=== PATIENT | female | born 1975 | race Caucasian/White ===

== ENCOUNTER 2018-12-23 21:31 | Inpatient (IN) ==
--- NOTE | 2018-12-23 22:52 | Emergency Department Note ---
Disposition Clinical Impression: Aortic occlusion, Peripheral cyanosis, Peripheral vascular disease Low back pain Qualifiers: Chronicity: unspecified Back pain laterality: unspecified Sciatica presence: without sciatica Qualified Code(s): M54.5 - Low back pain Disposition: Admitted As Inpatient Condition: Fair Referrals: NONE,PCP [Primary Care Provider] - Forms: ED Satisfaction Letter Back Pain HPI - General Chief Complaint: ED Back Pain/Injury Stated Complaint: back pain Time Seen by Provider: 12/23/18 22:04 Source: patient Mode of arrival: private vehicle Limitations: no limitations Nursing Notes Reviewed: Yes Vital Signs Reviewed: Yes - History of Present Illness HPI Narrative: 43-year-old female 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 States she has had back pain for about the last week. It is worse with any type of ambulation. States that whenever she walks that her feet turn purple and her legs go numb. No prior history to this prior to 1 week ago. She denies any trauma. She is not on anticoagulation. Denies fevers. No bowel or bladder incontinence. She last used 3 years ago. No other complaints. Pt Subjective Complaint: back pain Onset (ago): week(s) Duration: intermittent Location: lumbar spine Worsens with: movement Associated symptoms: Reports: numbness. Denies: incontinence of bowel/bladder, fever, abdominal pain - Related Data Allergies Allergy/AdvReac Type Severity Reaction Status Date / Time Penicillins [PCN] Allergy Rash Verified 12/23/18 21:48 All systems ED: reviewed and negative except as stated. Cardiovascular: Denies: chest pain Respiratory: Denies: dyspnea Gastrointestinal: Denies: abdominal pain Musculoskeletal: Reports: back pain Neurological: Reports: numbness Past Medical History - Past Medical History Attestation: Yes The following information was validated with the patient. 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 - Social History Smoking Status: Current every day smoker Smokeless Tobacco Status: No Alcohol use: Reports: none Drug use: Reports: other Physical Exam - General Limitations: no limitations General appearance: alert, in no apparent distress - Head Head exam: atraumatic, normocephalic, normal inspection - Eye Eye exam: Present: normal appearance - ENT ENT exam: normal exam - Neck Neck exam: Present: normal inspection - Chest Chest inspection: Present: normal inspection, symmetric chest wall rise - Respiratory Respiratory exam: Present: normal lung sounds bilaterally - Cardiovascular Cardiovascular exam: Present: normal rhythm, tachycardia, normal heart sounds - Abdominal Exam Abdominal exam: Present: soft, Non-Tender. Absent: tenderness, distention, rigidity - Extremities Exam Extremities exam: Present: normal inspection, full ROM - Expanded Upper Extremity Exam Shoulder exam: Present: normal inspection, full ROM Arm exam: Present: normal inspection, full ROM Elbow exam: Present: normal inspection, full ROM Forearm/Wrist exam: Present: normal inspection, full ROM Hand exam: Present: normal inspection, full ROM - Expanded Lower Extremity Exam Hip/Pelvis exam: Present: normal inspection, full ROM Upper leg exam: Present: normal inspection, full ROM Knee exam: Present: normal inspection, full ROM Lower leg exam: Present: normal inspection, full ROM Foot/toe exam: Present: ecchymosis (The patient has purple discoloration of the bilateral feet from the level of the ankle distally. I am unable to palpate a posterior tibial or dorsalis pedis pulse.) Neurovascular/Tendon exam: Present: pulse deficit - Back Exam Back exam: Present: normal inspection Back 1 view image: 1 - Pain is mostly located over the sacrum. Course Course Narrative: Patient seen and examined. Vital signs reviewed. Unable to Doppler a pulse. Plan to get a stat VENUS. Anticipate angiogram with runoff of the aorta and vascular surgery consult if necessary. - Reevaluation(s) Reevaluation #1: VENUS of 0.3 and 0.4. Plan to obtain CT imaging for an angiogram with runoff. Reevaluation #2: I discussed the CT findings with the interpreting radiologist. They believe that her collateral flow seems insufficient for chronic process and a concern f or a more acute etiology. Plan to discuss with vascular surgery. - Consultations Consultation #1: I spoke with the on-call vascular surgeon Dr. Denise. Discussed the patient's history, exam including absent dorsalis pedis pulses with dopplerable posterior tibial pulses in conjunction with purple feet. Discussed her one-week history of symptoms worse with ambulation. Also discussed findings on her CT scan that I and the radiologist had discussed with her infrarenal aortic occlusion with poorly collateralized flow. Agrees with heparinizing the patient at this time and admission. Plans to evaluate imaging to determine further management. Consultation #2: Spoke again with the vascular surgeon about admitting to his service. Request admission to the hospitalist service at this time as he is currently covering the service. Vital Signs Temperature 98.8 F 12/23/18 21:48 Pulse Rate 123 12/23/18 21:48 Respiratory Rate 14 12/23/18 21:48 Blood Pressure 163/92 12/23/18 21:48 O2 Sat by Pulse Oximetry 99 12/23/18 21:48 Temperature 98.8 F 12/23/18 21:48 Pulse Rate 123 12/23/18 21:48 Respiratory Rate 14 12/23/18 21:48 Blood Pressure 163/92 12/23/18 21:48 O2 Sat by Pulse Oximetry 99 12/23/18 21:48 Oxygen Delivery Oxygen Delivery Room Air Back Pain/Injury - MDM Narrative Medical decision making narrative: 43-year-old female presenting with 1 week of back pain and lower extremity numbness and discoloration in the setting of an aortic occlusion. Patient has peripheral vascular disease with ABIs of 0.3 and 0.4. Labs reviewed and are grossly unremarkable. CT scan demonstrates infrarenal occlusion with poor collateralization. This case was discussed multiple times with the on-call vascular surgeon. Patient was started on heparin infusion in anticipation of po tential urgent vascular intervention. The patient is admitted to the hospitalist service with vascular consultation. - Lab Data Lab results reviewed: Yes I reviewed the patient's lab results. Result diagrams: 12/23/18 23:41 12/23/18 23:41 Lab Results 12/23/18 12/23/18 12/23/18 Range/Units 23:41 23:41 23:41 WBC 12.4 H (4.3-11.1) K/mcL RBC 5.17 H (3.82-4.97) M/mcL Hgb 15.6 H (11.5-15.4) g/dL Hct 45.4 H (35.3-44.9) % MCV 87.8 (83.0-100.0) fL MCH 30.2 (28.0-33.3) pg MCHC 34.4 (31.6-35.5) g/dL RDW 12.2 (11.5-14.5) % Plt Count 212 (140-400) K/mcL MPV 10.2 (9.4-12.4) fL Immature Gran % 0.7 (0-4) % Seg Neutrophils % 78.2 % Lymphocytes % 16.6 % Monocytes % 4.0 % Eosinophils % 0.2 % Basophils % 0.3 % Neutrophils # 9.7 H (1.6-8.9) K/mcL Lymphocytes # 2.1 (0.6-4.6) K/mcL Monocytes # 0.5 (0.0-1.3) K/mcL Eosinophils # 0.0 (0.0-0.6) K/mcL Basophils # 0.0 (0.0-0.2) K/mcL PT 11.6 (9.4-12.1) Seconds INR 1.0 APTT 26.2 (26.0-36.0) Seconds Heparin Anti-Xa, Unfract (0.30-0.70) IU/mL Sodium 133 L (136-145) mEq/L Potassium 4.3 (3.5-5.1) mEq/L Chloride 102 (98-107) mEq/L Carbon Dioxide 22 L (23-29) mEq/L BUN 5 L (6-20) mg/dL Creatinine 0.60 (0.60-1.20) mg/dL Est GFR ( Amer) > 60 (> 60) Est GFR (Non-Af Amer) > 60 (> 60) BUN/Creatinine Ratio 8 (6-26) Glucose 89 (70-105) mg/dL Calculated Osmolality 273 L (280-300) Calcium 9.7 (8.6-10.3) mg/dL 12/24/18 Range/Units 05:28 WBC (4.3-11.1) K/mcL RBC (3.82-4.97) M/mcL Hgb (11.5-15.4) g/dL Hct (35.3-44.9) % MCV (83.0-100.0) fL MCH (28.0-33.3) pg MCHC (31.6-35.5) g/dL RDW (11.5-14.5) % Plt Count (140-400) K/mcL MPV (9.4-12.4) fL Immature Gran % (0-4) % Seg Neutrophils % % Lymphocytes % % Monocytes % % Eosinophils % % Basophils % % Neutrophils # (1.6-8.9) K/mcL Lymphocytes # (0.6-4.6) K/mcL Monocytes # (0.0-1.3) K/mcL Eosinophils # (0.0-0.6) K/mcL Basophils # (0.0-0.2) K/mcL PT (9.4-12.1) Seconds INR APTT (26.0-36.0) Seconds Heparin Anti-Xa, Unfract 0.00 L (0.30-0.70) IU/mL Sodium (136-145) mEq/L Potassium (3.5-5.1) mEq/L Chloride (98-107) mEq/L Carbon Dioxide (23-29) mEq/L BUN (6-20) mg/dL Creatinine (0.60-1.20) mg/dL Est GFR ( Amer) (> 60) Est GFR (Non-Af Amer) (> 60) BUN/Creatinine Ratio (6-26) Glucose (70-105) mg/dL Calculated Osmolality (280-300) Calcium (8.6-10.3) mg/dL - Radiology Data Radiology results reviewed: Yes I reviewed the patient's radiology results. Aorta w/Runoff CTA 12/24/18 00:02 IMPRESSION: Occlusion of the abdominal aorta just below the level of renal arteries with reconstitution just above the aortic bifurcation. Bilateral common iliac arteries and external iliac arteries are extremely small in caliber. No significant collateral supply is seen to the lower extremities resulting in extremely small caliber bilateral lower extremity arterial vessels. No significant occlusive disease in the lower extremities although the below knee vessels are all quite small in caliber with poor opacification of bilateral anterior tibial arteries likely secondary to the aortic occlusion. Cholelithiasis. Critical results were called by Dr. Dez Brown to Dr. Gonsalo Baird on 12/24/2018 at 04:48. D/ / Dez Brown / Dez Brown Interpreting Provider: Dez Brown Lumbar Spine CT 12/24/18 00:02 IMPRESSION: No acute osseous abnormality on CT of the lumbar spine. Correlate with report from CTA abdomen/pelvis and runoff: Infrarenal abdominal aorta is occluded with reconstitution at the distal aspect of the infrarenal abdominal aorta. D/ / Bari Chin / Bari Chin Interpreting Provider: Bari Chin oyce - Ernesto Situation: Demographics, MOA Background: Presenting Complaint, Relevant PMH, Meds, & Allergies Assessment: Course and respsone to treatment, Exam Concerns, Patient/Family Expectation, Pertinant Lab Results Recommendation: Barrier(s) to disposition, Recommendation based on pending studies, treatments, or consults SJoyce Report Given to: Dr. Traci Orozco Repor Time: 05:49
--- NOTE | 2018-12-23 23:11 | Emergency Department Note ---
Disposition Clinical Impression: Aortic occlusion, Peripheral cyanosis, Peripheral vascular disease Low back pain Qualifiers: Chronicity: unspecified Back pain laterality: unspecified Sciatica presence: without sciatica Qualified Code(s): M54.5 - Low back pain Disposition: Admitted As Inpatient Condition: Fair General Adult HPI - General Chief complaint: ED Back Pain/Injury Stated complaint: back pain Time Seen by Provider: 12/23/18 22:04 Source: patient Mode of arrival: private vehicle Limitations: no limitations Nursing Notes Reviewed: Yes Vital Signs Reviewed: Yes - History of Present Illness Pain Scale: 2 - Related Data Allergies Allergy/AdvReac Type Severity Reaction Status Date / Time Penicillins [PCN] Allergy Rash Verified 12/23/18 21:48 Cardiovascular: Denies: chest pain Respiratory: Denies: dyspnea Gastrointestinal: Denies: abdominal pain Musculoskeletal: Reports: back pain Neurological: Reports: numbness Past Medical History - Past Medical History Medical history: Reports: hepatitis Psychiatric history: Reports: depression 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 - Social History Smoking Status: Current every day smoker Smokeless Tobacco Status: No Alcohol use: Reports: none Drug use: Reports: other Physical Exam - General Limitations: no limitations General appearance: alert, in no apparent distress Course Vital Signs Temperature 98.8 F 12/23/18 21:48 Pulse Rate 123 12/23/18 21:48 Respiratory Rate 14 12/23/18 21:48 Blood Pressure 163/92 12/23/18 21:48 O2 Sat by Pulse Oximetry 99 12/23/18 21:48 Temperature 98.8 F 12/23/18 21:48 Pulse Rate 99 12/24/18 06:05 Respiratory Rate 20 12/24/18 06:05 Blood Pressure 126/69 12/24/18 06:05 O2 Sat by Pulse Oximetry 99 12/24/18 06:05 Oxygen Delivery Oxygen Delivery Room Air Medical Decision Making - Medical Records Medical records reviewed: Yes I reviewed the patient's medical records. - Lab Data Lab results reviewed: Yes I reviewed the patient's lab results. Result diagrams: 12/23/18 23:41 12/23/18 23:41 Lab Results 12/23/18 12/23/18 12/23/18 Range/Units 23:41 23:41 23:41 WBC 12.4 H (4.3-11.1) K/mcL RBC 5.17 H (3.82-4.97) M/mcL Hgb 15.6 H (11.5-15.4) g/dL Hct 45.4 H (35.3-44.9) % MCV 87.8 (83.0-100.0) fL MCH 30.2 (28.0-33.3) pg MCHC 34.4 (31.6-35.5) g/dL RDW 12.2 (11.5-14.5) % Plt Count 212 (140-400) K/mcL MPV 10.2 (9.4-12.4) fL Immature Gran % 0.7 (0-4) % Seg Neutrophils % 78.2 % Lymphocytes % 16.6 % Monocytes % 4.0 % Eosinophils % 0.2 % Basophils % 0.3 % Neutrophils # 9.7 H (1.6-8.9) K/mcL Lymphocytes # 2.1 (0.6-4.6) K/mcL Monocytes # 0.5 (0.0-1.3) K/mcL Eosinophils # 0.0 (0.0-0.6) K/mcL Basophils # 0.0 (0.0-0.2) K/mcL PT 11.6 (9.4-12.1) Seconds INR 1.0 APTT 26.2 (26.0-36.0) Seconds Heparin Anti-Xa, Unfract (0.30-0.70) IU/mL Sodium 133 L (136-145) mEq/L Potassium 4.3 (3.5-5.1) mEq/L Chloride 102 (98-107) mEq/L Carbon Dioxide 22 L (23-29) mEq/L BUN 5 L (6-20) mg/dL Creatinine 0.60 (0.60-1.20) mg/dL Est GFR ( Amer) > 60 (> 60) Est GFR (Non-Af Amer) > 60 (> 60) BUN/Creatinine Ratio 8 (6-26) Glucose 89 (70-105) mg/dL Calculated Osmolality 273 L (280-300) Calcium 9.7 (8.6-10.3) mg/dL 12/24/18 Range/Units 05:28 WBC (4.3-11.1) K/mcL RBC (3.82-4.97) M/mcL Hgb (11.5-15.4) g/dL Hct (35.3-44.9) % MCV (83.0-100.0) fL MCH (28.0-33.3) pg MCHC (31.6-35.5) g/dL RDW (11.5-14.5) % Plt Count (140-400) K/mcL MPV (9.4-12.4) fL Immature Gran % (0-4) % Seg Neutrophils % % Lymphocytes % % Monocytes % % Eosinophils % % Basophils % % Neutrophils # (1.6-8.9) K/mcL Lymphocytes # (0.6-4.6) K/mcL Monocytes # (0.0-1.3) K/mcL Eosinophils # (0.0-0.6) K/mcL Basophils # (0.0-0.2) K/mcL PT (9.4-12.1) Seconds INR APTT (26.0-36.0) Seconds Heparin Anti-Xa, Unfract 0.00 L (0.30-0.70) IU/mL Sodium (136-145) mEq/L Potassium (3.5-5.1) mEq/L Chloride (98-107) mEq/L Carbon Dioxide (23-29) mEq/L BUN (6-20) mg/dL Creatinine (0.60-1.20) mg/dL Est GFR ( Amer) (> 60) Est GFR (Non-Af Amer) (> 60) BUN/Creatinine Ratio (6-26) Glucose (70-105) mg/dL Calculated Osmolality (280-300) Calcium (8.6-10.3) mg/dL - Radiology Data Radiology results reviewed: Yes I reviewed the patient's radiology results. Aorta w/Runoff CTA 12/24/18 00:02 IMPRESSION: Occlusion of the abdominal aorta just below the level of renal arteries with reconstitution just above the aortic bifurcation. Bilateral common iliac arteries and external iliac arteries are extremely small in caliber. No significant collateral supply is seen to the lower extremities resulting in extremely small caliber bilateral lower extremity arterial vessels. No significant occlusive disease in the lower extremities although the below knee vessels are all quite small in caliber with poor opacification of bilateral anterior tibial arteries likely secondary to the aortic occlusion. Cholelithiasis. Critical results were called by Dr. Dez Brown to Dr. Gonsalo Baird on 12/24/2018 at 04:48. D/ / Dez Brown / Dez Brown Interpreting Provider: Dez Brown Lumbar Spine CT 12/24/18 00:02 IMPRESSION: No acute osseous abnormality on CT of the lumbar spine. Correlate with report from CTA abdomen/pelvis and runoff: Infrarenal abdominal aorta is occluded with reconstitution at the distal aspect of the infrarenal abdominal aorta. D/ / Bari Chin / Bari Chin Interpreting Provider: Bari Chin Critical Care Time Critical Care Time: Yes Total Critical Care Time: 45 Attestation: Critical care performed: Time is exclusive of separately billable procedures. Time includes: direct patient care, patient reassessment, coordination of patient care, interpretation of data (laboratory data, radiology data, and respiratory data), review of patient's medical records, medical consultation and documentation of patient care. Procedures included in critical care time: Procedures excluded from critical care time: Attestation Statement - Attestation Attestation: I, Sloan Millan MD, personally evaluated this patient and discussed their management with the resident physician. I reviewed the resident's note and agree with the documented findings, medical decision making, and plan of care. 43-year-old female presents to the emergency department with a complaint that both of her feet have been getting numb and painful and turning purple the past week. Symptoms are worse when she walks and improved with rest. She also complains of lower back pain and sacral area pain. No fever. She is a heavy smoker. On examination patient is a well-developed thin female in no acute distress. She is alert and oriented 3. There is no cyanosis or diaphoresis. Breath sounds are equal bilaterally. No rales or wheezes noted. Heart regular rate and rhythm. Abdomen soft and nontender with normal bowel sounds. Both feet are cold to touch from just above the ankle down to the toes. She does have cyanosis of the feet bilaterally, especially the toes with delayed capillary refill. Unable to palpate pulses in the feet or ankles bilaterally. Unable to find pulses by Doppler in the feet or ankles bilaterally. The legs above the ankles are warm to touch. ABIs obtained procedures, 0.3 on the right and 0.4 on the left. Aortogram with runoff obtained. Showed occlusion of the infrarenal aorta with collateral circulation distally but small collaterals and limited blood flow. Labs reviewed. Patient was started on heparin infusion. Dr. Baird discussed the CT results with the radiologist from [facility]. He discussed the case with the vascular surgeon production proofreader, Dr. Denise. The hospitalist, Dr. Aviles, was consulted and accepted admission of the patient.
[2018-12-24] MEDS ORDERED: Isovue-370 500 ML BOTTLE IVP ONE (00:02)
[2018-12-24 00:17] LABS: Prothrombin Time 11.6 Seconds (9.4-12.1)
[2018-12-24 00:19] LABS: Activated Partial Thrombo Time 26.2 Seconds (26.0-36.0)
[2018-12-24 00:27] LABS: Basophils % 0.3 %; Eosinophils % 0.2 %; Hematocrit 45.4 % (35.3-44.9); Hemoglobin 15.6 g/dL (11.5-15.4); Immature Granulocytes % 0.7 % (0-4); Lymphocytes # 2.1 K/mcL (0.6-4.6); Lymphocytes % 16.6 %; Mean Corpuscular HGB Conc 34.4 g/dL (31.6-35.5); Mean Corpuscular Hemoglobin 30.2 pg (28.0-33.3); Mean Corpuscular Volume 87.8 fL (83.0-100.0); Mean Platelet Volume 10.2 fL (9.4-12.4); Monocytes # 0.5 K/mcL (0.0-1.3); Neutrophils # 9.7 K/mcL (1.6-8.9); Platelet Count 212 K/mcL (140-400); Red Blood Count 5.17 M/mcL (3.82-4.97); Red Cell Distribution Width 12.2 % (11.5-14.5); Segmented Neutrophils % 78.2 %
[2018-12-24 01:11] LABS: BUN/Creatinine Ratio 8 (6-26); Blood Urea Nitrogen 5 mg/dL (6-20); Calcium 9.7 mg/dL (8.6-10.3); Carbon Dioxide 22 mEq/L (23-29); Chloride 102 mEq/L (98-107); Glucose 89 mg/dL (70-105); Osmolality,Calculated 273 (280-300); Potassium 4.3 mEq/L (3.5-5.1); Sodium 133 mEq/L (136-145); eGFR For Non-African Americans > 60 (> 60)
[2018-12-24] MEDS ORDERED: *HR* Heparin 5,000 UNIT/ML VIAL IVP ONE (04:51)
[2018-12-24] MEDS ORDERED: *HR* Heparin 5,000 UNIT/ML VIAL IVP PRN (04:51)
[2018-12-24] MEDS ORDERED: Nicotine 14 MG PATCH.TD24 TD ONE (05:54)
[2018-12-24] MEDS: Heparin 25,000 UNIT/250 ML D5W 25,000 UNIT/250 ML IV.SOLN IVC SCH (06:22)
--- NOTE | 2018-12-24 10:57 | Vascular/Endovasc Consult Note ---
Date of Encounter: 12/24/18 Time of Encounter: 10:54 Assessment and Plan (1) Aortic occlusion Current Visit: Yes Status: Acute I have reviewed these films for the abdomen with runoff on the PACS system and by dictated report. I agree with the assessment that there is an occlusion of the abdominal aorta about a centimeter below the renals and reconstitution distally at the bifurcation. This is somewhat of an unusual position as it appears that the bifurcation itself is patent. There are small vessels thereafter, but is difficult to tell whether the vessels themselves are small or this is just hypoperfusion. It is probably a combination of both as this is a relatively small individual also. I see no evidence of other vascular disease noted. There does appear to be some calcification associated with the abdominal aorta, but it is not extensive. At this point in time the patient is not in a life or limb threatening situation. Certainly, the symptomatology associated with the feet this critical enough to justify surgical intervention soon. I think that the patient should have a beginning workup for possible embolic source, and it is noted that an echocardiogram has already been ordered which I agree with. I would also suggest an evaluation by Cardiology for both embolic risk and risk stratification for surgical intervention. I have discussed this case with Dr. Ordoñez, and he is in agreement that surgical intervention this weekend is not in the patient's best interest. With that in mind I would keep this patient on a heparin drip, Wednesday we will keep her nothing by mouth from midnight for Wednesday, we will have blood available for surgery, and I have described in general what is going on with this patient and potential surgical intervention to her. I would anticipate an attempt at thrombectomy, and if that is not successful progression to either endovascular repair or perhaps even open repair with open aortic endarterectomy versus aortobifemoral bypass grafting. Thank you very much for the opportunity to evaluate this patient. - History of Present Illness History of present illness: Ms. Bautista is a 43 year old female presented yesterday to the emergency room with a complaint of purplish discoloration to her feet and intermittent numbness to the feet. The patient states that approximately a week ago she felt a sudden onset of fullness and tightness associated with her low back. At the same time, she had numbness to her legs. She could not really define this as pain. She was sitting when this occurred, remain sitting for a few minutes, and then got up to try to "walk it off". Initially when she stood up, she was able to bear weight without problem. As she walked a few steps she became somewhat unstable and needed to hold onto things. She has tried several things over the intervening week, such as soaks, heat, and [id number] analgesics to help. Over this past week the numbness has been intermittent, her feet have turned purplish in coloration depending upon position, the feet have been cold, and her walking has gone from unlimited to minimal incapability. She presents here for further evaluation. The patient gives no history of claudication, atrial fibrillation, fluttering in her chest, racing of her heart, or any other symptoms consistent with atrial fibrillation. She does smoke about 1-1/2 packs of cigarettes per day, and she is not on control pills. She does not admit to any other obvious risk factors. She has no significant family history that is able to be glistened, and steadfastly denies any symptoms prior to a week ago. Past Med Surg Social Fam HX - Past Medical History Medical history: hepatitis Psychiatric history: depression - Past Surgical History Additional surgical history: tubal - Social History Smoking Status: Current every day smoker Packs per day: 1 1/2 pack/day Smokeless Tobacco Status: No Alcohol use: none Drug use: other Medications and Allergies Allergy/AdvReac Type Severity Reaction Status Date / Time Penicillins [PCN] Allergy Rash Verified 12/23/18 21:48 All Systems Review: The remainder of the systems were reviewed and are negative Review of Systems: The review of systems is reviewed in the chart is considered is grossly unremarkable to the presenting complaint. She specifically denies chest pain, chest discomfort, shortness of breath, abdominal pain, back pain prior to this, claudication prior to this, or specific neurologic motor deficit. The remainder of the review of systems is considered as negative at 10 point Exam Vital Signs, Last 4 Hours Temp Pulse Resp BP Pulse Ox 12/24/18 10:29 98.2 F 84 16 162/69 98 12/24/18 08:00 98.5 F 90 18 137/82 97 Exam: 43-year-old female in mild acute distress secondary to her lower extremities. She is awake, alert, coherent, and cooperative. She is somewhat anxious over her present status. She is someone who rarely is involved with the medical system. HEENT examination is grossly unremarkable Neck is supple, carotids are palpable, no bruits are auscultated, trachea is midline. Heart is regular rate and rhythm at this time. I hear no ectopy. There are no murmurs noted. Lungs are clear to auscultation Abdomen is soft without obvious masses Breast and genitalia examinations are deferred to her primary caregiver Extremities are present 4. In the upper extremities the brachial and radial pulses are palpable. No masses, lesions, or distortions are noted. In the lower extremities the femoral, dorsal pedal, and posterior tibial pulses are all nonpalpable. The upper legs are warm, and legs begin to cool at the level of the knee. By the time one reaches the foot, both feet are cold to the touch. Both feet have a purplish hue to them. This does timothy, but does so very slowly. There is no pain noted in the feet at this time. Neurologic exam shows no gross motor deficit. The patient has full and active motion in regards to the hip joint, knee joint, ankle joint, and all toes. She has some mild numbness associated with the foot, but she feels that this is very minimal at this point. She does feel the coldness of her feet. Consult Discharge Plan - Plan Referrals: NONE,PCP [Primary Care Provider] -
[2018-12-24] MEDS ORDERED: Naloxone 0.4 MG/ML INJ IVP PRN (11:19)
[2018-12-24] MEDS ORDERED: D5% in 0.45% NACL 1,000 ML IVC SCH (11:30)
--- NOTE | 2018-12-24 12:49 | Internal Med History&Physical ---
Date of Encounter: 12/24/18 Time of Encounter: 09:00 Internal Medicine - H&P: HPI Chief complaint: Bilateral leg numbness Admitted From: Home Plans for Post Hospital Care: Home History of present illness: Ms. Bautista is a 43 year old female present to ER for bilateral leg numbness. Past medical history is significant for IV drug use several years ago, hep C, S/P tubal ligation. Patient said she started to have bilateral leg numbness for about 1 week. Symptoms getting worse when she walks. And legs change color to purple on exertion. Patient also has low back pain. Patient denies fever, no shortness of breath or chest pain. Patient denies urinary/fecal incontinence. In the emergency room, CTA shows infrarenal aortic occlusion. CT L-spine shows no significant acute change. Patient was started on heparin drip and admitted for further management. Past Med Surg Social Fam HX - Past Medical History Medical history: hepatitis Psychiatric history: depression - Past Surgical History Additional surgical history: tubal - Social History Smoking Status: Current every day smoker Packs per day: 1 1/2 pack/day Smokeless Tobacco Status: No Alcohol use: none Drug use: other - Family History Mother History Unknown: Yes Internal Medicine - H&P: Meds Allergy/AdvReac Type Severity Reaction Status Date / Time Penicillins [PCN] Allergy Rash Verified 12/23/18 21:48 All Systems PM: A 10-system review of systems was performed and is negative for pertinent findings except as documented above in the HPI. - Constitutional Vitals: Temp Pulse Resp BP Pulse Ox 98.2 F 84 16 162/69 98 12/24/18 10:29 12/24/18 10:29 12/24/18 10:29 12/24/18 10:29 12/24/18 10:29 Exam: Pt is AAO x 3, in NAD HEENT: NC/AT, PERRL Neck: Supple, no JVD, no LAD Lungs: CTA b/l Heart: S1S2, RRR Abd: Soft, nontender, BS present Ext: ROM wnl, no pedal edema, bilateral LE pulse cannot detected, skin is cold. Neuro: No focal deficit Internal Med - H&P Results - Labs CBC & Chem 7: 12/23/18 23:41 12/23/18 23:41 Labs: Short CBC 12/23/18 Range/Units 23:41 WBC 12.4 H (4.3-11.1) K/mcL Hgb 15.6 H (11.5-15.4) g/dL Hct 45.4 H (35.3-44.9) % Plt Count 212 (140-400) K/mcL Neutrophils # 9.7 H (1.6-8.9) K/mcL BMP 12/23/18 23:41 Sodium 133 L Potassium 4.3 Chloride 102 Carbon Dioxide 22 L BUN 5 L Creatinine 0.60 Glucose 89 Calcium 9.7 - Impressions ITS Impressions Aorta w/Runoff CTA 12/24/18 00:02 IMPRESSION: Occlusion of the abdominal aorta just below the level of renal arteries with reconstitution just above the aortic bifurcation. Bilateral common iliac arteries and external iliac arteries are extremely small in caliber. No significant collateral supply is seen to the lower extremities resulting in extremely small caliber bilateral lower extremity arterial vessels. No significant occlusive disease in the lower extremities although the below knee vessels are all quite small in caliber with poor opacification of bilateral anterior tibial arteries likely secondary to the aortic occlusion. Cholelithiasis. Critical results were called by Dr. Dez Brown to Dr. Gonsalo Baird on 12/24/2018 at 04:48. D/ / Dez Brown / Dez Brown Interpreting Provider: Dez Brown Lumbar Spine CT 12/24/18 00:02 IMPRESSION: No acute osseous abnormality on CT of the lumbar spine. Correlate with report from CTA abdomen/pelvis and runoff: Infrarenal abdominal aorta is occluded with reconstitution at the distal aspect of the infrarenal abdominal aorta. D/ / Bari Chin / Bari Chin Interpreting Provider: Bari Chin - Assessment and Plan (1) Aortic occlusion Current Visit: Yes Status: Acute Assessment and plan: Patient has clear CT founding of aortic occlusion. Consistent with her symptoms. - Vascular surgery consult on case. Plan for surgery on Wednesday. - Continue heparin drip - Echocardiogram to rule out cardiac source of emboli - Cardiology consult per vascular surgery recommendation. (2) History of intravenous drug use in remission Current Visit: Yes Status: Acute Assessment and plan: Patient is on suboxone. Continue home medications after verification. - Patient has newly developed aortic occlusion, will check echocardiogram to rule out vegetation/emboli. - We will also check blood culture to rule out bacteremia. (3) Tobacco abuse Current Visit: Yes Status: Acute Assessment and plan: Smoking cessation education. Place patient on nicotine patch (4) DVT prophylaxis Current Visit: Yes Status: Acute Assessment and plan: Patient is on heparin drip - Time Spent With Patient Total time spent is greater than 50% in coordination of care (as documented) at patient's floor/unit and/or counseling patient: 40 minutes Greater than 35 minutes
[2018-12-24] MEDS: *HR* Heparin 5,000 UNIT/ML VIAL IVP PRN ×2 (14:12→22:23)
[2018-12-24] MEDS: NALOXONE SL SCH (22:19)
[2018-12-24] MEDS: BUPRENORPHINE SL SCH (22:19)
[2018-12-25 05:14] LABS: Basophils % 0.4 %; Eosinophils % 0.5 %; Hematocrit 45.5 % (35.3-44.9); Hemoglobin 15.8 g/dL (11.5-15.4); Immature Granulocytes % 0.1 % (0-4); Lymphocytes # 3.1 K/mcL (0.6-4.6); Lymphocytes % 41.6 %; Mean Corpuscular HGB Conc 34.7 g/dL (31.6-35.5); Mean Corpuscular Hemoglobin 30.5 pg (28.0-33.3); Mean Corpuscular Volume 87.8 fL (83.0-100.0); Mean Platelet Volume 10.3 fL (9.4-12.4); Monocytes # 0.6 K/mcL (0.0-1.3); Monocytes % 8.2 %; Neutrophils # 3.6 K/mcL (1.6-8.9); Platelet Count 196 K/mcL (140-400); Red Blood Count 5.18 M/mcL (3.82-4.97); Red Cell Distribution Width 12.1 % (11.5-14.5); Segmented Neutrophils % 49.2 %
[2018-12-25 05:36] LABS: BUN/Creatinine Ratio 13 (6-26); Blood Urea Nitrogen 7 mg/dL (6-20); Calcium 9.4 mg/dL (8.6-10.3); Carbon Dioxide 24 mEq/L (23-29); Chloride 101 mEq/L (98-107); Glucose 90 mg/dL (70-105); Magnesium 2.2 mg/dL (1.6-2.6); Osmolality,Calculated 278 (280-300); Potassium 3.7 mEq/L (3.5-5.1); Sodium 135 mEq/L (136-145); eGFR For Non-African Americans > 60 (> 60)
[2018-12-25] MEDS: Nicotine 21 MG PATCH.TD24 TD SCH (08:49)
[2018-12-25] MEDS: NALOXONE SL SCH ×2 (08:50→21:14)
[2018-12-25] MEDS: BUPRENORPHINE SL SCH ×2 (08:50→21:14)
--- NOTE | 2018-12-25 10:38 | Internal Med Progress Note ---
Hospitalist Progress Note - Encounter Date of Encounter: 12/25/18 Time of Encounter: 08:00 - Subjective Interval History: Patient was seen and evaluated by bedside with the RN. Reports improvement in her LE numbness and RN also reports that they are much warmer and "normal" in color compared to yesterday. Able to move both feet and toes without much diff iculty. No fever overnight. Denies any chest pain, palpitation. - Exam Vitals: Temp Pulse Resp BP Pulse Ox 98.4 F 89 15 158/73 99 12/25/18 08:05 12/25/18 08:05 12/25/18 08:05 12/25/18 08:05 12/25/18 08:05 Exam: General: AAO x 3, in NAD Lungs: CTA b/l Heart: S1S2, RRR. No murmur appreciated Abd: Soft, nontender, BS present. 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 able to move both without difficulty. Unable to palpate both pulses well Neuro: No focal deficit - Assessment and Plan (1) Aortic occlusion Current Visit: Yes Status: Acute Assessment and Plan: Patient has clear CT founding of aortic occlusion. Consistent with her sympto ms. started on heparin gtt with slight improvement vascular surgery input appreciated, to continue heparin gtt and tentatively plan for OR tomorrow cardiology consult placed yesterday per vascular suggestion for both embolic risk and risk stratification for surgery Echo pending (2) History of intravenous drug use in remission Current Visit: Yes Status: Chronic Assessment and Plan: Patient is on suboxone. Continue home medications after verification. Patient has newly developed aortic occlusion, echocardiogram pending to rule out vegetation/emboli. Follow up blood cultures to rule out bacteremia. (3) Tobacco abuse Current Visit: Yes Status: Chronic Assessment and Plan: Smoking cessation education. NRT (4) DVT prophylaxis Current Visit: Yes Status: Acute Assessment and Plan: hep gtt - Time Spent with Patient Total time spent is greater than 50% in coordination of care (as documented) at patient's floor/unit and/or counseling patient: 25 - 35 minutes Plan of Care Discussed with: patient (discussed with RN) Internal Medicine: Result - Labs CBC & Chem 7: 12/25/18 04:44 12/25/18 04:44 Labs: Short CBC 12/25/18 Range/Units 04:44 WBC 7.3 (4.3-11.1) K/mcL Hgb 15.8 H (11.5-15.4) g/dL Hct 45.5 H (35.3-44.9) % Plt Count 196 (140-400) K/mcL Neutrophils # 3.6 (1.6-8.9) K/mcL BMP 12/25/18 04:44 Sodium 135 L Potassium 3.7 Chloride 101 Carbon Dioxide 24 BUN 7 Creatinine 0.54 L Glucose 90 Calcium 9.4 - ABG Interpretation ABG results: PT/INR, D-dimer PT 11.6 Seconds (9.4-12.1) 12/23/18 23:41 Consult Discharge Plan - Plan Referrals: NONE,PCP [Primary Care Provider] -
--- NOTE | 2018-12-25 11:00 | Vascular/[facility] Progress Note ---
Date of Encounter: 12/25/18 Time of Encounter: 10:57 - Assessment and plan (1) Aortic occlusion Current Visit: Yes Status: Acute I have reviewed these films for the abdomen with runoff on the PACS system and by dictated report. I agree with the assessment that there is an occlusion of the abdominal aorta about a centimeter below the renals and reconstitution distally at the bifurcation. This is somewhat of an unusual position as it appears that the bifurcation itself is patent. There are small vessels thereafter, but is difficult to tell whether the vessels themselves are small or this is just hypoperfusion. It is probably a combination of both as this is a relatively small individual also. I see no evidence of other vascular disease noted. There does appear to be some calcification associated with the abdominal aorta, but it is not extensive. At this point in time the patient is not in a life or limb threatening situation. Certainly, the symptomatology associated with the feet this critical enough to justify surgical intervention soon. I think that the patient should have a beginning workup for possible embolic source, and it is noted that an echocardiogram has already been ordered which I agree with. I would also suggest an evaluation by Cardiology for both embolic risk and risk stratification for surgical intervention. I have discussed this case with Dr. Ordoñez, and he is in agreement that surgical intervention this weekend is not in the patient's best interest. With that in mind I would keep this patient on a heparin drip, Wednesday we will keep her nothing by mouth from midnight for Wednesday, we will have blood available for surgery, and I have described in general what is going on with this patient and potential surgical intervention to her. I would anticipate an attempt at thrombectomy, and if that is not successful progression to either endovascular repair or perhaps even open repair with open aortic endarterectomy versus aortobifemoral bypass grafting. Thank you very much for the opportunity to evaluate this patient. Discussion with patient/family: #1. Occlusion of the abdominal aorta below the renals and above the bifurcation. We are awaiting results of the echocardiogram to make sure there is no thrombus in the left atrium. Potential surgical intervention tomorrow. I did discuss this previous with Dr. Ordoñez. #2. Source unknown from #1, possible cardiac in origin certainly unclear Echocardiogram pending. - Subjective Interval history: This 43-year-old female seen in follow-up after having been evaluated yesterday and noted to have an occlusion of her abdominal aorta. She was placed on heparin and is potentially aiming at surgical intervention tomorrow. I had thought that an echocardiogram was already ordered, but apparently it was normal. I did discuss this with nursing at this time. The patient gives no new additional complaints today. She has been at bed rest, and her symptoms are relatively minimal. There were minimal previous at bedrest also. We have not challenged her with ambulation since she has been here. Vital Signs, Last 4 Hours Temp Pulse Resp BP Pulse Ox 12/25/18 10:36 98.4 F 84 16 151/90 100 12/25/18 08:05 98.4 F 89 15 158/73 99 Exam: 43-year-old female in no acute distress. Is awake, alert, coherent, and cooperative. Physical examination in regards to the HEENT, neck, heart, lungs, abdomen, extremity, and neurologic exams are grossly unchanged from previous with the exception of colon the physical examination on the extremities shows no gross changes. She has perhaps not as purplish in discoloration ax she was yesterday, but she has been at bed rest all day also. No changes in pulses or other aspe cts of the extremities. Results 12/25/18 04:44 12/25/18 04:44 Lab Results, Last 24 hours 12/25/18 12/25/18 04:44 04:44 WBC 7.3 Hgb 15.8 H Hct 45.5 H Plt Count 196 Sodium 135 L Potassium 3.7 Chloride 101 Carbon Dioxide 24 BUN 7 Creatinine 0.54 L Glucose 90 Calcium 9.4 Magnesium 2.2 Consult Discharge Plan - Plan Referrals: NONE,PCP [Primary Care Provider] -
[2018-12-25] MEDS: Heparin 25,000 UNIT/250 ML D5W 25,000 UNIT/250 ML IV.SOLN IVC SCH (13:56)
--- NOTE | 2018-12-25 16:58 | Cardiology Consult Note ---
Date of Encounter: 12/25/18 Time of Encounter: 10:56 Assessment and Plan (1) Preoperative cardiovascular examination Current Visit: Yes Status: Acute Patient had good functional status prior to developing symptoms of aortic occlusion. She has no active cardiac condition at this time. She is therefore at acceptable risk for surgical intervention if indicated. (2) Aortic occlusion Current Visit: Yes Status: Acute Infrarenal aortic occlusion, with poor flow to the lower extremities. No definite evidence of thrombus or intracardiac vegetation on transthoracic echocardiogram. Recommend MARGARET if clinically indicated (3) Tobacco abuse Current Visit: Yes Status: Chronic Urged to quit smoking Discussion w patient/family: The assessment and plan as outlined above was discussed with the patient and/or family members who expressed understanding and agreement. All questions were answered. Thank you for involving us in the care of your patient. Please call with any questions. History of Present Illness Consult date: 12/25/18 History of present illness: Ms. Bautista is a 43 year old female 43-year-old pleasant female, current everyday smoker, former IV drug user on therapy, admitted for lower back pain which started about a week ago, with duskiness of the feet bilaterally, and she was found to have infrarenal aortic occlusion with small caliber iliac vessels. She has no chest pain, palpitations, or shortness of breath. No history of intermittent claudication. She has no history of coronary artery disease, hypertension, diabetes, no history of infective endocarditis. No known family history of premature coronary artery disease. She reports walking her dog more than 2 blocks and is able to climb steps stairs without developing chest pain or shortness of breath. We are consulted for preoperative cardiovascular examination Past Med Surg Social Fam HX - Past Medical History Medical history: hepatitis Psychiatric history: depression - Past Surgical History Additional surgical history: tubal - Social History Smoking Status: Current every day smoker Packs per day: 1 1/2 pack/day Smokeless Tobacco Status: No Alcohol use: none Drug use: other - Family History Mother History Unknown: Yes Medications and Allergies Allergy/AdvReac Type Severity Reaction Status Date / Time Penicillins [PCN] Allergy Rash Verified 12/23/18 21:48 All Systems Review: The remainder of the systems were reviewed and are negative - Constitutional Constitutional: no anorexia, no fatigue, no fever(s) - EENT Eyes: no blurred vision Nose, mouth and throat: no bleeding gums - Cardiovascular Cardiovascular: no chest pain at rest, no chest pain with exertion, no diaph oresis, no irregular heart rhythm, no orthopnea, no palpitations, no syncope - Respiratory Respiratory: no cough, no dyspnea, no wheezing - Gastrointestinal Gastrointestinal: no abdominal pain - Musculoskeletal Musculoskeletal: no abnormal gait - Integumentary Integumentary: no unusual bruising - Neurological Neurological: no abnormal speech - Psychiatric Psychiatric: no anxiety - Hematological/Lymphatic Hematologic/Lymphatic: no easy bleeding Physical Examination Vital Signs, Last 4 Hours Temp Pulse Resp BP Pulse Ox 12/25/18 15:08 98.1 F 96 16 137/76 98 General: Conversant, No Apparent Distress HEENT: Atraumatic Neck: No JVD Cardiac: Reg Rate and Rhythm, Normal S1 and S2, No Murmur Lungs: Normal Breath Sounds, No Wheeze, Rales, Rhonchi Neuro: Alert and responsive Abdomen: Soft, Non-Tender Musculoskeletal: No Chest Wall Tenderness Extremities: No Edema Results 12/25/18 04:44 12/25/18 04:44 Lab Results 12/25/18 12/25/18 04:44 04:44 WBC 7.3 Hgb 15.8 H Hct 45.5 H Plt Count 196 Sodium 135 L Potassium 3.7 Chloride 101 Carbon Dioxide 24 BUN 7 Creatinine 0.54 L Glucose 90 Calcium 9.4 Magnesium 2.2 Consult Discharge Plan - Plan Referrals: NONE,PCP [Primary Care Provider] -
[2018-12-26 05:20] LABS: Hematocrit 40.3 % (35.3-44.9); Mean Corpuscular HGB Conc 34.7 g/dL (31.6-35.5); Mean Corpuscular Hemoglobin 29.9 pg (28.0-33.3); Mean Corpuscular Volume 86.1 fL (83.0-100.0); Mean Platelet Volume 10.4 fL (9.4-12.4); Platelet Count 190 K/mcL (140-400); Red Blood Count 4.68 M/mcL (3.82-4.97); Red Cell Distribution Width 11.9 % (11.5-14.5)
[2018-12-26 05:29] LABS: INR 1.1; Prothrombin Time 12.2 Seconds (9.4-12.1)
[2018-12-26 05:39] LABS: BUN/Creatinine Ratio 17 (6-26); Blood Urea Nitrogen 9 mg/dL (6-20); Calcium 9.8 mg/dL (8.6-10.3); Carbon Dioxide 22 mEq/L (23-29); Chloride 104 mEq/L (98-107); Glucose 95 mg/dL (70-105); Osmolality,Calculated 278 (280-300); Sodium 135 mEq/L (136-145); eGFR For Non-African Americans > 60 (> 60)
[2018-12-26] MEDS: Nicotine 21 MG PATCH.TD24 TD SCH (10:24)
[2018-12-26] MEDS: NALOXONE SL SCH ×3 (10:24→21:17)
[2018-12-26] MEDS: BUPRENORPHINE SL SCH ×3 (10:24→21:17)
--- NOTE | 2018-12-26 11:57 | Internal Med Progress Note ---
Hospitalist Progress Note - Encounter Date of Encounter: 12/26/18 Time of Encounter: 09:30 - Subjective Interval History: Patient states her numbness of the legs have completely resolved. No chest pain, palpitation, or worsening leg swelling. No leg pain. - Exam Vitals: Temp Pulse Resp BP Pulse Ox 98.4 F 102 16 147/86 98 12/26/18 11:25 12/26/18 11:25 12/26/18 11:25 12/26/18 11:25 12/26/18 11:25 Exam: General: AAO x 3, in NAD Lungs: CTA b/l Heart: S1S2, RRR. No murmur appreciated Abd: Soft, nontender, BS present. 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 Able to move both feet at the ankles without difficulty. Unable to palpate both pulses well Neuro: No focal deficit - Assessment and Plan (1) Aortic occlusion Current Visit: Yes Status: Acute Assessment and Plan: Patient has clear CT founding of aortic occlusion. Consistent with her symptoms. started on heparin gtt with good clinical response discussed with Dr. Ordoñez; given her clinical improvement, will hold off on surgery for today and a/w for his evaluation later this afternoon. Echo did not show any evidence of vegetation or thrombus (2) History of intravenous drug use in remission Current Visit: Yes Status: Chronic Assessment and Plan: Patient is on suboxone. Resumed after verification. Follow up blood cultures to rule out bacteremia, NGTD (3) Tobacco abuse Current Visit: Yes Status: Chronic Assessment and Plan: Smoking cessation education. NRT (4) DVT prophylaxis Current Visit: Yes Status: Acute Assessment and Plan: hep gtt - Time Spent with Patient Total time spent is greater than 50% in coordination of care (as documented) at patient's floor/unit and/or counseling patient: 25 - 35 minutes Plan of Care Discussed with: patient (discussed with RN and Vascular Surgery) Internal Medicine: Result - Labs CBC & Chem 7: 12/26/18 05:09 12/26/18 05:09 Labs: Short CBC 12/26/18 Range/Units 05:09 WBC 6.7 (4.3-11.1) K/mcL Hgb 14.0 D (11.5-15.4) g/dL Hct 40.3 (35.3-44.9) % Plt Count 190 (140-400) K/mcL BMP 12/26/18 05:09 Sodium 135 L Potassium 4.0 Chloride 104 Carbon Dioxide 22 L BUN 9 Creatinine 0.52 L Glucose 95 Calcium 9.8 - ABG Interpretation ABG results: PT/INR, D-dimer PT 12.2 Seconds (9.4-12.1) H 12/26/18 05:09 - Impressions Impressions Echocardiogram 12/24/18 09:27 Impressions: LVEF 60%. Normal LV chamber size, wall thickness and function. Normal left ventricular diastolic function. Normal right ventricular structure and function. Unable to estimate RVSP due to lack of TR jet. No obvious significant valvular dysfunction. No definite evidence of intracardiac vegetation or thrombus. Consider MARGARET if clinically indicated. Left Ventricular Wall Motion: Rest Echo Findings All wall segments showed normal motion. Findings: Study Quality * Technically adequate exam. ECG Findings * Normal sinus rhythm. Left Ventricle * LVEF 60%. * Normal LV chamber size, wall thickness and function. * Normal left ventricular diastolic function. Right Ventricle * Normal right ventricular structure and function. Left Atrium * Normal left atrial size. Right Atrium * Normal right atrial size. Interatrial Septum * Interatrial septum not well evaluated. Aortic Valve * Aortic valve not well visualized. * No aortic regurgitation. * No aortic stenosis. Mitral Valve * Mildly thickened mitral valve leaflets. * No mitral regurgitation. * No mitral stenosis. Tricuspid Valve * Normal tricuspid valve structure. * No tricuspid stenosis. * No tricuspid regurgitation. * Unable to estimate RVSP due to lack of TR jet. Pulmonic Valve * Pulmonic valve is not well visualized. Aorta * Normally sized aortic root. Pericardium * The pericardium appears normal. IVC * Normal IVC dimensions and inspiratory collapse. Pulmonary Artery * Pulmonary artery not well visualized. Consult Discharge Plan - Plan Referrals: NONE,PCP [Primary Care Provider] -
[2018-12-26] MEDS ORDERED: Acetaminophen 325 MG TABLET PO PRN (11:59)
[2018-12-26] MEDS: Heparin 25,000 UNIT/250 ML D5W 25,000 UNIT/250 ML IV.SOLN IVC SCH ×2 (15:05→23:23)
--- NOTE | 2018-12-26 16:27 | Vascular/[facility] Progress Note ---
Date of Encounter: 12/26/18 Time of Encounter: 16:23 - Assessment and plan (1) Aortic occlusion Current Visit: Yes Status: Acute Patient has what appears to be a one-week history of aortic occlusion. She denies any preemptive claudicatory symptoms. She states she was able to walk without difficulty prior to the onset of symptoms. She states the symptoms were abrupt in onset which would suggest either a focal dissection or embolization. The echocardiogram however reveals normal abnormalities to suggest a cardiac source for this thrombotic process. Patient does have risk factors for tobacco abuse and smokes approximately one half packs of cigarettes a day and has been smoking since age 16. The patient denies any trauma or automobile accidents or falls. Patient denies any family history of premature vascular disease. The patient does not know her father's medical history. The patient denies any preemptive issues with viral or respiratory illnesses or dehydration prior to the onset of her symptoms. I have personally reviewed the laboratory values and the CAT scan angiograms. The infrarenal aorta is occluded. What strikes me as all small her iliac vessels are in diameter. Due to the severity of this occlusion the patient clearly needs an operation on an urgent basis. Therefore recommended that we proceed with surgery tomorrow. The initial portion of the operation will be as exploration of the aorta to see if the aorta may be open by a thrombectomy and endarterectomy and patch angioplasty. If this is not feasible then the patient will require an aortobifemoral bypass graft. These issues were discussed with the patient in full. The potential risks and benefits as well as complications and alternatives were reviewed. Patient agrees to proceed. We will make the necessary arrangements for tomorrow morning. (2) History of intravenous drug use in remission Current Visit: Yes Status: Chronic Patient admits to heroin addiction. She states that she has been without drug use for the last 4-41/2 years. She is on Suboxone twice a day for control of her addiction. (3) Tobacco abuse Current Visit: Yes Status: Chronic The patient has been smoking since age 16. She presently smokes 1-1/2 pack cigarettes a day. Patient was clearly informed of the need for complete tobacco cessation. - Subjective Interval history: Patient states that the numbness is now gone from her legs. She no longer has the pelvic or lower extremity pain. Patient has been on intravenous heparin which is most likely the agent providing her relief. Vital Signs, Last 4 Hours Temp Pulse Resp BP Pulse Ox 12/26/18 14:19 98.1 F 94 14 145/96 97 - Physical Examination General: Present: Conversant, No Apparent Distress HEENT: Present: Atraumatic, Normocephaly Neck: Absent: JVD Cardiac: Present: Reg Rate and Rhythm Lungs: Present: Normal Breath Sounds Neuro: Present: Alert and responsive, No focal deficits noted, Cranial nerves grossly intact, Motor nerves grossly intact, Sensory nerves grossly intact Vascular: Present: Capillary refill delayed, Bruit (No abdominal or femoral bruits are identified.), Pulse, absent, Color/Temperature (Feet are cold to the touch. The feet and toes are cyanotic.). Absent: Edema Abdomen: Present: Soft, Non-tender. Absent: Masses Skin: Present: No rashes noted on visualized skin. Absent: Wound/ulcer(s) Musculoskeletal: Present: No Chest Wall Tenderness Results 12/26/18 05:09 12/26/18 05:09 Lab Results, Last 24 hours 12/26/18 12/26/18 12/26/18 05:09 05:09 05:09 WBC 6.7 Hgb 14.0 D Hct 40.3 Plt Count 190 INR 1.1 Sodium 135 L Potassium 4.0 Chloride 104 Carbon Dioxide 22 L BUN 9 Creatinine 0.52 L Glucose 95 Calcium 9.8 Consult Discharge Plan - Plan Referrals: NONE,PCP [Primary Care Provider] -
--- NOTE | 2018-12-26 18:27 | Anesthesia Evaluation PreOp ---
Date of Encounter: 12/26/18 Time of Encounter: 18:25 - Past History Planned Operation: Aortic thrombectomy Cardiac History: Other (Aortic occlusion) Pulmonary History: Smoker HEAD WELL PULLER History: Other (depression) Other Medical History: Hepatic Anesthesia History: No Prior Anesthetic Complications, Past Anesthesia (tubal) Alcohol Use: none Drug use: other (hx of IV drug use) Medications and Allergies Buprenorphine HCl/Naloxone HCl [Buprenorphin-Naloxon 8-2 mg Sl] 1 tab SL BID 12/25/18 [History] Allergy/AdvReac Type Severity Reaction Status Date / Time Penicillins [PCN] Allergy Rash Verified 12/23/18 21:48 - Meds/Allergy Pre-op Review Medications Reviewed: Yes Allergies Reviewed: Yes Beta Blockers on Current Med List: No Anesthesia Results - Labs 12/26/18 05:09 12/26/18 05:09 Laboratory Tests 12/23/18 12/26/18 12/26/18 23:41 05:09 12:59 PT 12.2 H INR 1.1 APTT 26.2 Heparin Anti-Xa, Unfract 0.36 - Imaging EKG: report reviewed (12/24/18 NSR) Additional studies: ECHO 12/24/18 Impressions: LVEF 60%. Normal LV chamber size, wall thickness and function. Normal left ventricular diastolic function. Normal right ventricular structure and function. Unable to estimate RVSP due to lack of TR jet. No obvious significant valvular dysfunction. No definite evidence of intracardiac vegetation or thrombus. Consider MARGARET if clinically indicated. Anesthesia Exam Vital Signs/O2 Sat, Most Current Temp Pulse Resp BP Pulse Ox 98.1 F 94 14 145/96 97 12/26/18 14:19 12/26/18 14:19 12/26/18 14:19 12/26/18 14:19 12/26/18 14:19 Weight: 47kg NPO (# of Hours): >8 - HEENT Pupil (Motor): Pupils equal, EOMI Mallampati: II Teeth: Edentulous (upper) Oral Opening: Greater than 3 - HEAD WELL PULLER LOC: Oriented HEAD WELL PULLER Motor: Normal RUE, Normal LUE, Normal RLE, Normal LLE, Normal Face HEAD WELL PULLER Sensory: Normal: RUE, LUE, RLE, LLE, Face - Cardiac Rhythm: Regular - Pulmonary Breath Sounds: bilateral Clear Respiratory Effort: Symmetrical Anesthesia Assess/Plan ASA Score: 3 (aortic occlusion, smoker, depression, hx of IVDA on buprenorphine) Anesthetic Plan: General Monitoring Plan: Standard Monitors, A-Line Recovery Plan: PACU (VS ICU)
[2018-12-26] MEDS ORDERED: Isovue-370 500 ML BOTTLE IVP ONE (20:42)
[2018-12-26] MEDS ORDERED: NON-FORMULARY MEDICATION 1 EACH EACH (Buprenorphine Hcl/Naloxone Hcl [Buprenorphin-Naloxon SL SCH (21:00)
[2018-12-26] MEDS: 0.9 % Sodium Chloride 1,000 ML IVC SCH (21:04)
[2018-12-27 06:13] LABS: BUN/Creatinine Ratio 20 (6-26); Blood Urea Nitrogen 10 mg/dL (6-20); Calcium 9.1 mg/dL (8.6-10.3); Carbon Dioxide 21 mEq/L (23-29); Chloride 103 mEq/L (98-107); Glucose 89 mg/dL (70-105); Osmolality,Calculated 279 (280-300); Sodium 135 mEq/L (136-145); eGFR For Non-African Americans > 60 (> 60)
[2018-12-27] MEDS ORDERED: Heparin 1,000 UNITS/500 mL 500 ML ONE (06:56)
[2018-12-27] MEDS ORDERED: *HR* Rocuronium Bromide 50 MG/5 ML VIAL ONE ×2 (07:00→09:56)
[2018-12-27] MEDS ORDERED: Ondansetron 4 MG/2 ML VIAL ONE (07:00)
[2018-12-27] MEDS ORDERED: *HR* Phenylephrine 10 MG/ML VIAL ONE (07:00)
[2018-12-27] MEDS ORDERED: Lidocaine -MPF 2% 2 ML VIAL ONE ×2 (07:00→07:11)
[2018-12-27] MEDS ORDERED: Dexamethasone 4 MG/ML VIAL ONE (07:00)
[2018-12-27] MEDS ORDERED: *HR* Propofol 200 MG/20 ML VIAL IVP ONE (07:07)
[2018-12-27] MEDS ORDERED: *HR* Remifentanil 2 MG VIAL IVP ONE (07:16)
[2018-12-27] MEDS ORDERED: *HR* FentaNYL (PF) 100 MCG/2 ML VIAL ONE (07:20)
[2018-12-27] MEDS ORDERED: *HR* Midazolam HCl 2 MG/2 ML VIAL ONE (07:20)
[2018-12-27] MEDS ORDERED: *HR* Heparin 5,000 UNIT/ML VIAL ONE (07:22)
[2018-12-27] MEDS ORDERED: EPHEDrine 50 MG/ML VIAL ONE (07:23)
[2018-12-27] MEDS ORDERED: Heparin 1,000 UNITS/500 mL 1,500 ML ONE (07:29)
[2018-12-27 07:31] LABS: Basophils % 0.3 %; Eosinophils % 0.5 %; Hematocrit 37.9 % (35.3-44.9); Hemoglobin 13.2 g/dL (11.5-15.4); Immature Granulocytes % 0.1 % (0-4); Lymphocytes # 2.3 K/mcL (0.6-4.6); Mean Corpuscular HGB Conc 34.8 g/dL (31.6-35.5); Mean Corpuscular Hemoglobin 30.1 pg (28.0-33.3); Mean Corpuscular Volume 86.3 fL (83.0-100.0); Mean Platelet Volume 10.3 fL (9.4-12.4); Monocytes # 0.7 K/mcL (0.0-1.3); Monocytes % 8.8 %; Neutrophils # 4.8 K/mcL (1.6-8.9); Platelet Count 197 K/mcL (140-400); Red Blood Count 4.39 M/mcL (3.82-4.97); Red Cell Distribution Width 11.9 % (11.5-14.5); Segmented Neutrophils % 61.3 %
[2018-12-27] MEDS ORDERED: Albumin Human 5% 25.0 GM/500 ML VIAL ONE (07:34)
[2018-12-27] MEDS ORDERED: ceFAZolin 1,000 MG, Sodium Chloride IRRigation 1,000 ML IR ONE (07:45)
[2018-12-27] MEDS ORDERED: *HR* Vasopressin 20 UNIT/ML VIAL ONE (08:35)
[2018-12-27] MEDS ORDERED: *HR* EPINEPHrine 1 MG/ML AMPUL ONE (08:36)
[2018-12-27] MEDS ORDERED: *HR* Labetalol 20 MG/4 ML SYRINGE IVP ONE (08:37)
[2018-12-27] MEDS ORDERED: *HR* Succinylcholine 200 MG/10 ML VIAL IVP ONE (09:03)
--- NOTE | 2018-12-27 09:14 | Anesthesia Procedures ---
Date of Encounter: 12/27/18 Time of Encounter: 07:30 Procedures: Anesthesia - Arterial Line Consent obtained: written consent Time out performed: Yes Sedation: Versed (mg): 4 Supplemental Oxygen via Nasal Cannula (L/min): 2 Local Anesthetic: Lidocaine 1% (5) Size (Gauge): 20 Length (inches): 1 3/4 Technique Used: guide wire technique Post-Procedure: line taped into place Patient tolerated procedure: no complications Complications: none Site: Radial R Vitals: Vital Signs/O2 Sat/Glucose, Most Current Pulse Resp Pulse Ox 12/27/18 08:36 106 16 97 12/27/18 08:08 106 16 93 - Central Line Placement Right IJ Consent obtained: written consent Time out performed: Yes Patient placed on monitor/pulse ox: Yes Sedation: Versed (mg): 4 Supplemental Oxygen via Nasal Cannula (L/min): 2 MD prep: mask, gown, gloves Central line prep: Chlorhexidine scrub Local Anesthetic Used: Lidocaine 1% Amount of Anesthetics Used (mls): 5 Ultrasound used for placement: Yes Technique: Seldinger Lumen Inserted: triple Size / Length: 7 Fr / 16 cm Post procedure: sutured in place Post procedure x-ray: tip of catheter in good position Patient tolerated procedure: well, no complications Complications: none Vitals: Vital Signs/O2 Sat/Glucose, Most Current Pulse Resp Pulse Ox 12/27/18 08:36 106 16 97 12/27/18 08:08 106 16 93
[2018-12-27] MEDS ORDERED: Sodium Bicarbonate 50 MEQ/50 ML VIAL ONE (10:27)
[2018-12-27] MEDS ORDERED: *HR* HYDROMORPHONE 2 MG/ML VIAL ONE ×3 (10:29→13:21)
[2018-12-27] MEDS ORDERED: *HR* Morphine 2 MG/ML SYRINGE IVP PRN (10:58)
[2018-12-27] MEDS ORDERED: Ondansetron 4 MG/2 ML VIAL IVP ONE (10:58)
[2018-12-27] MEDS ORDERED: *HR* OxyCODONE Immed Rel 5 MG TABLET PO PRN (10:58)
[2018-12-27] MEDS ORDERED: Dexamethasone 4 MG/ML VIAL IVP ONE (10:58)
[2018-12-27] MEDS ORDERED: *HR* Labetalol 20 MG/4 ML SYRINGE IVP PRN ×2 (10:58→13:59)
[2018-12-27] MEDS ORDERED: *HR* Meperidine 25 MG/ML SYRINGE IVP PRN (10:58)
[2018-12-27 12:15] LABS: ABG Base Excess -2 mEq/L (-2 to 3); ABG Chloride 111 mEq/L (98-107); ABG Glucose 153 mg/dL (60-95); ABG HCO3 24 mEq/L (21-27); ABG Ionized Calcium 1.31 mmol/L (1.15-1.35); ABG Oxygen Saturation 100 % (95-98); ABG PCO2 45 mmHg (35-45); ABG PH 7.34 pH Units (7.32-7.45); ABG PO2 275 mmHg (85-104); ABG TCO2 25 mEq/L (20-26)
[2018-12-27] MEDS ORDERED: SUGAMMADEX SODIUM 500 MG/5 ML VIAL IV ONE (12:22)
--- NOTE | 2018-12-27 13:16 | Operative Note ---
Date of procedure: 12/27/18 Pre-op diagnosis: Peripheral vascular disease with aortic occlusion Post-op diagnosis: same Procedure: 1. Infrarenal abdominal aortic endarterectomy with Dacron patch angioplasty. Complications: None Anesthesia: GETA Surgeon: Tj Infante Co-Surgeon: Elmo Ordoñez Was there an senior sales assistant present: No Estimated blood loss (cc): 400 (375 returned via Cell Saver) Specimen: Aortic plaque and thrombus Condition: stable Disposition: PACU Procedure in Detail: Indications: The patient is a 43 year old female who reports acute onset severe disabling claudication in the bilateral lower extremities. She underwent a CT angiogram was found have a infrarenal aortic occlusion. Revascularization was recommended to reduce her risk of limb loss and to help alleviate her symptoms. Procedure: The patient was identified in the preoperative area. The risks, benefits, and alternatives of the procedure were discussed. All questions were answered. The patient was taken to the operating room and placed in supine position on the operating room table. After the induction of general endotracheal anesthesia, he was cleaned and draped in normal sterile fashion. A two surgeon approach was utilized for this procedure in order to minimize anesthetic time and the risks for complications due to the patients comorbid conditions. In addition, a two surgeon approach was used for intraoperative decision making. A midline incision was made sharply through the skin. Hemaostasis was obtained via electrocautery. Through a process of blunt, sharp and electrocautery dissection, the subcutaneous tissue, fascia and peritoneum were traversed. A brief exporation of the peritoneum revealed no acute pathology. The aorta was palpated in the retroperitoneum. The retroperitoneum was opened with blunt, sharp and electrocautery dissection. The aorta was dissected along the anterior, medial and lateral surfaces to the level of the renal arteries. The renal vein was identified and preserved. The dissection was extended down to the aortic bifurcation and onto the bilateral common iliac arteries. The distal bilateral common iliac arteries were dissected circumferentially and surrounded with vessel loops. The patient received 5000 units of intravenous heparin and additional heparin throughout the case to maintain anticoagulation. The infrarenal aorta was clamped just below the bilateral renal arteries. Tension was applied to the Vesseloops along the bilateral distal common iliac arteries. A longitudinal incision was made from just below the infrarenal aortic clamp down to the level of the aortic bifurcation. Significant aortic thrombus was encountered and this was removed. Retrograde bleeding from lumbar arteries was also identified. The lumbar arteries were clamped posterior to the aorta. An extensive endarterectomy was then performed using a dental freer. Distal endpoints were inspected. The posterior distal aortic plaque was then sutured in place with interrupted 5-0 Prolene suture. The aorta was flushed by releasing the clamp and a large organized thrombus emerged. The aorta was clamped again and infused with heparinized saline. A Dacron patch was then cut to fit the aortotomy. The patch was then sutured in place with a running 4-0 Prolene. After completing the patch angioplasty of the aorta, flow was restored through the aorta and the bilateral iliac arteries. Strong palpable femoral pulses were identified bilaterally. Thrombin and gelfoam were used to aid in hemostasis. Polyphasic signals were noted in the bilateral femoral arteries. The abdomen and pelvis were irrigated with antibiotic containing saline. Meticulous hemostasis was obtained throughout the retroperitoneum with electrocautery. The retroperitoneum was reapproximated with 2-0 Vicryl. The abdominal contents were returned to their normal anatomic position The nasogastric tube was checked for position. The midline fascia was reapproximated with looped PDS suture. The subcutaneous tissue was reapproximated with 3-0 Vicryl. Skin was reapproximated with 4-0 Vicryl. Sterile dressings were applied. The patient was extubated and taken to recovery room in stable condition.
--- NOTE | 2018-12-27 13:25 | Operative Note ---
Date of procedure: 12/27/18 Pre-op diagnosis: Acute aortic occlusion Post-op diagnosis: same Procedure: abdominal aortic thromboendarterectomy with dacron patch angioplasty Complications: 0 Anesthesia: GETA Surgeon: Elmo Ordoñez Co-Surgeon: Tj Infante Was there an diploma medical assistant present: No Estimated blood loss (cc): 400 (375 cell saver returned) Specimen: endarterectomy Condition: stable Disposition: ICU Procedure in Detail: History Pastora Bautista is a 43-year-old white female who was admitted over this past weekend with bilateral lower extremity numbness and pulse deficits. She was found to have an acute abdominal aortic occlusion. Patient was placed on IV heparin which controlled her symptoms and she was placed at bedrest. She now comes the operating room for definitive treatment for this lesion. Of note the patient is an active tobacco abuser. She also has a past history tobacco and heroin abuse and takes Suboxone. Procedure After informed consent was obtained the patient was taken to the operating room. A central line and arterial line will be placed in preop holding. General endotracheal anesthesia was established. The abdomen groin and upper thighs were sterilely prepped and draped. A timeout protocol was observed. A vertical midline incision was made of the abdomen. The abdomen was explored. Liver was slightly hypertrophic but there were no LESIONS. Spleen was normal in size as were the kidneys. There was no free fluid. The viscera otherwise was within normal limits. The small bowel was then reflected into the right upper quadrant. The retroperitoneum was then opened. The infrarenal aorta was pulseless. The patient had a relatively normal diameter aorta compared to her body size of a proximally 47 kg. Dissection was then made of the aortic bifurcation in order to control the proximal and mid portions of the bilateral common iliac arteries. Dissection was then carried proximally. The inferior mesenteric artery was identified and controlled. Dissection was carried up to the level of the renal arteries bilaterally. The left renal vein was mobilized so it could be retracted superiorly and cephalad. Patient had a palpable pulse at the level of the renal arteries and none distally. 5000 units of heparin were then administered intravenously. After 3 minute delay the aorta was clamped immediately below the renal arteries. A longitudinal aortotomy was performed with 11 blade knife and continued with Maxwell scissors. Fresh thrombus was identified in the infrarenal aorta above the inferior mesenteric artery but below the renal arteries. The patient had dramatic atherosclerotic disease with an area of dense atherosclerotic and calcific plaque in the most distal portion of the abdominal aorta. It would appear that this was perhaps a high-grade stenosis which went on to thrombose causing the patient's symptoms and then progression of the thrombus to the level of the renal arteries. The fresh thrombus was easily removed. A formal endarterectomy was then performed of the abdominal aorta. This was carried from the infrarenal location to the aortic bifurcation. The inferior mesenteric artery was preserved during this dissection and the orifice was endarterectomized as well. The bed of the vessel was then copiously irrigated with about continuing and heparinized solution. This area was inspected for any residual debris. Tacking sutures were used to secure the plaque at the distal aspect of the aorta immediately above the aortic bifurcation. In order to close this thromboendarterectomy and Dacron patch was necessary. A 12 mm tube graft was selected. This was then soaked in antibiotic and then cut to size to fashion an elliptical shaped patch. This was sewn into position using 2 4-0 Prolene sutures. Leaving a small space open the area was back flushed both retrograde and antegrade. The final few sutures were then placed. The right lower extremity was opened first and then the aortic clamp was removed. The patient tolerated this well and had no hypotension. Then the left leg was opened. The patient remained hemodynamically stable. Palpable femoral pulses were identified. Excellent Doppler signals were identified in the iliac vessels. The abdomen was then irrigated with antibiotic-containing solution. The retroperitoneum was reapproximated. The viscera was placed back into its normal position. There is no findings of ischemia of the left lower extremity. Excellent Doppler signals were identified through the inferior mesenteric artery as well. The fascia was then closed using loop PDS suture. The subcutaneous tissue was approximated using 3-0 Vicryl and then the skin was approximated using 4-0 Vicryl and Steri-Strips. Dry sterile dressings were applied. The patient was then extubated. She was hemodynamically stable. She was transported from the operating room to the intensive care unit in stable condition. Of note the patient had biphasic Doppler signals 2 at the ankle level bilaterally. Her feet were warm with 2 second or less capillary refill at the conclusion of the operation. Her calves were soft and there is no finding of compartment syndrome or distal embolization.
[2018-12-27] MEDS ORDERED: Naloxone 0.4 MG/ML INJ IVP PRN (13:59)
[2018-12-27] MEDS ORDERED: Ondansetron 4 MG/2 ML VIAL IVP PRN (13:59)
[2018-12-27] MEDS: Ketorolac 15 MG/ML VIAL IVP PRN (14:12)
[2018-12-27 15:08] LABS: Basophils % 0.2 %; Hematocrit 33.7 % (35.3-44.9); Immature Granulocytes % 0.5 % (0-4); Lymphocytes # 1.2 K/mcL (0.6-4.6); Mean Corpuscular HGB Conc 32.9 g/dL (31.6-35.5); Mean Corpuscular Hemoglobin 29.6 pg (28.0-33.3); Mean Corpuscular Volume 89.9 fL (83.0-100.0); Mean Platelet Volume 10.1 fL (9.4-12.4); Monocytes # 0.3 K/mcL (0.0-1.3); Monocytes % 2.3 %; Neutrophils # 11.3 K/mcL (1.6-8.9); Platelet Count 160 K/mcL (140-400); Red Blood Count 3.75 M/mcL (3.82-4.97); Red Cell Distribution Width 12.1 % (11.5-14.5)
[2018-12-27 15:12] LABS: Hemoglobin 11.1 g/dL (11.5-15.4)
[2018-12-27 15:17] LABS: BUN/Creatinine Ratio 18 (6-26); Blood Urea Nitrogen 10 mg/dL (6-20); Calcium 8.5 mg/dL (8.6-10.3); Carbon Dioxide 24 mEq/L (23-29); Chloride 111 mEq/L (98-107); Glucose 161 mg/dL (70-105); Osmolality,Calculated 293 (280-300); Potassium 3.8 mEq/L (3.5-5.1); Sodium 140 mEq/L (136-145); eGFR For Non-African Americans > 60 (> 60)
--- NOTE | 2018-12-27 15:32 | Internal Med Progress Note ---
Hospitalist Progress Note - Encounter Date of Encounter: 12/27/18 Time of Encounter: 13:45 - Subjective Interval History: Patient was seen postop. Underwent abdominal aortic thromboendarterectomy with patch angioplasty this morning. Was transferred to ICU for post-op monitoring with CVC, A-line, and NGT. No new complaints. - Exam Vitals: Temp Pulse Resp BP Pulse Ox 98.2 F 98 22 145/66 94 12/27/18 14:59 12/27/18 14:59 12/27/18 14:59 12/27/18 14:59 12/27/18 14:59 Exam: General: AAO x 3, NGT in situ Lungs: CTA b/l Heart: S1S2, RRR. No murmur appreciated Ext: both feet warm to touch with palpable DP bilaterally Neuro: No focal deficit - Assessment and Plan (1) Aortic occlusion Current Visit: Yes Status: Acute Assessment and Plan: Patient has clear CT founding of aortic occlusion. Consistent with her symptoms. Echo did not show any evidence of vegetation or thrombus was on heparin gtt and taken to the OR for thromboendarterectomy with patch angioplasty today by Dr. Ordoñez/Naresh post-op mx per vascular surgery (2) History of intravenous drug use in remission Current Visit: Yes Status: Chronic Assessment and Plan: Patient is on suboxone. Resumed after verification. Follow up blood cultures to rule out bacteremia, NGTD (3) Tobacco abuse Current Visit: Yes Status: Chronic Assessment and Plan: Smoking cessation education. NRT (4) DVT prophylaxis Current Visit: Yes Status: Acute Assessment and Plan: transition to SQ heparin once feasible from surgical standpoint - Time Spent with Patient Total time spent is greater than 50% in coordination of care (as documented) at patient's floor/unit and/or counseling patient: 25 - 35 minutes Plan of Care Discussed with: patient Internal Medicine: Result - Labs CBC & Chem 7: 12/27/18 14:40 12/27/18 14:40 Labs: Short CBC 12/27/18 12/27/18 Range/Units 07:02 14:40 WBC 7.8 12.8 H D (4.3-11.1) K/mcL Hgb 13.2 11.1 L D (11.5-15.4) g/dL Hct 37.9 33.7 L (35.3-44.9) % Plt Count 197 160 (140-400) K/mcL Neutrophils # 4.8 11.3 H (1.6-8.9) K/mcL BMP 12/27/18 12/27/18 04:59 14:40 Sodium 135 L 140 Potassium 4.0 3.8 Chloride 103 111 H Carbon Dioxide 21 L 24 BUN 10 10 Creatinine 0.49 L 0.55 L Glucose 89 161 H Calcium 9.1 8.5 L - ABG Interpretation ABG results: ABG ABG pH 7.34 pH Units (7.32-7.45) 12/27/18 12:11 ABG pCO2 45 mmHg (35-45) 12/27/18 12:11 ABG pO2 275 mmHg (85-104) H 12/27/18 12:11 ABG O2 Saturation 100 % (95-98) H 12/27/18 12:11 PT/INR, D-dimer PT 12.2 Seconds (9.4-12.1) H 12/26/18 05:09 - Impressions Impressions CT Dissection 12/26/18 20:42 IMPRESSION: There has been no change from the study 2 days ago. Complete occlusion of the infrarenal abdominal aorta is again noted with reconstitution at the level of the aortic bifurcation in part related to collateral supply by the inferior mesenteric artery. Cholelithiasis. Gallbladder wall thickening versus contraction. Moderate stool load particularly in the right colon suggest constipation. D/ / Tj Trevino MD / Tj Trevino MD Interpreting Provider: Tj Trevino MD Chest X-Ray 12/27/18 14:25 IMPRESSION: Right IJ central venous catheter with tip in the distal SVC. Enteric tube present with side-port in the proximal body of the stomach. Distal tip excluded from field of view. No evidence for acute cardiopulmonary process to include no pneumothorax. D/ : / 12/27/2018 14:43:37 Christian Hawkins MD / [facility] Interpreting Provider: Christian Hawkins MD Consult Discharge Plan - Plan Referrals: NONE,PCP [Primary Care Provider] - Elmo Ordoñez MD [Partnered Physician] - 01/18/19 9:45 am
--- NOTE | 2018-12-27 17:42 | Pulmonology Consult Note ---
<Cindy Noriega M - Last Filed: 12/27/18 19:06> Date of Encounter: 12/27/18 Time of Encounter: 15:42 Assessment and Plan (1) Aortic occlusion Current Visit: Yes Status: Acute * Per primary team * Doing well postoperatively * NG tube in place, will add GI prophylaxis Protonix 40mg daily (2) History of intravenous drug use in remission Current Visit: Yes Status: Chronic * On Suboxone, pain management per primary (3) Tobacco abuse Current Visit: Yes Status: Chronic * Will provide the patient with nicotine patch * Encouraged smoking cessation * No wheezing or need for further respiratory intervention at this time. (4) DVT prophylaxis Current Visit: Yes Status: Acute * SCD in place History of Present Illness History of present illness: Patient's a 43-year-old female with history of IV drug abuse, aortic occlusion, and tobacco abuse who presented on 12/23/18 due to back pain. She was found to have an aortic thrombus and underwent aortic endarterectomy with Dr. Ordoñez. Patient seen postop in the intensive care unit. She is alert, active and denies any pain. She denies any chest pain, shortness of breath, significant abdominal pain. Past Med Surg Social Fam HX - Past Medical History Medical history: hepatitis Psychiatric history: depression - Past Surgical History Additional surgical history: tubal - Social History Smoking Status: Unknown if ever smoked Packs per day: 1 1/2 pack/day Smokeless Tobacco Status: No Alcohol use: none Drug use: other - Family History Mother History Unknown: Yes Medications and Allergies Buprenorphine HCl/Naloxone HCl [Buprenorphin-Naloxon 8-2 mg Sl] 1 tab SL BID 12/25/18 [History] Allergy/AdvReac Type Severity Reaction Status Date / Time Penicillins [PCN] Allergy Rash Verified 12/23/18 21:48 All Systems: The remainder of the systems were reviewed and are negative - Constitutional Constitutional: as per HPI, no fever(s) - Cardiovascular Cardiovascular: no chest pain - Respiratory Respiratory: no cough, no dyspnea, no wheezing - Gastrointestinal Gastrointestinal: no abdominal pain Physical Examination Vital Signs: Vital Signs, Last 4 Hours Temp Pulse Resp BP Pulse Ox 12/27/18 17:00 100 22 149/72 97 12/27/18 16:00 98.1 F 93 20 149/71 95 12/27/18 15:30 91 20 149/68 95 12/27/18 14:59 98.2 F 98 22 145/66 94 12/27/18 14:33 100 23 157/73 94 12/27/18 14:17 98 20 168/82 97 12/27/18 14:00 94 20 172/91 97 12/27/18 13:45 92 20 166/85 100 General appearance: no acute distress, alert Eyes: nonicteric ENT: oropharynx moist Effort: normal Auscultation: bilateral: clear Cardiovascular: regular rate and rhythm Gastrointestinal: normoactive bowel sounds, other (Midline abdominal incision with dry dressings. No significant abdominal tenderness or guarding) Integumentary: normal Extremities: no cyanosis Musculoskeletal: no deformities normal mental status, non-focal exam mood appropriate, affect normal Results - Laboratory Findings CBC and BMP: 12/27/18 14:40 12/27/18 14:40 ABG ABG pH 7.34 pH Units (7.32-7.45) 12/27/18 12:11 ABG pCO2 45 mmHg (35-45) 12/27/18 12:11 ABG pO2 275 mmHg (85-104) H 12/27/18 12:11 ABG O2 Saturation 100 % (95-98) H 12/27/18 12:11 PT/INR, D-dimer PT 12.2 Seconds (9.4-12.1) H 12/26/18 05:09 Abnormal lab findings: Abnormal lab results WBC 12.8 K/mcL (4.3-11.1) H D 12/27/18 14:40 RBC 3.75 M/mcL (3.82-4.97) L 12/27/18 14:40 Hgb 11.1 g/dL (11.5-15.4) L D 12/27/18 14:40 Hct 33.7 % (35.3-44.9) L 12/27/18 14:40 Neutrophils # 11.3 K/mcL (1.6-8.9) H 12/27/18 14:40 PT 12.2 Seconds (9.4-12.1) H 12/26/18 05:09 ABG pO2 275 mmHg (85-104) H 12/27/18 12:11 ABG O2 Saturation 100 % (95-98) H 12/27/18 12:11 ABG Hematocrit 26.0 % (35.3-44.9) L 12/27/18 12:11 ABG Chloride 111 mEq/L (98-107) H 12/27/18 12:11 Potassium 3.4 mEq/L (3.5-5.3) L 12/27/18 12:11 Glucose 153 mg/dL (60-95) H 12/27/18 12:11 Chloride 111 mEq/L (98-107) H 12/27/18 14:40 Creatinine 0.55 mg/dL (0.60-1.20) L 12/27/18 14:40 Glucose 161 mg/dL (70-105) H 12/27/18 14:40 POC Glucose 157 mg/dL (70-99) H 12/27/18 13:42 Calcium 8.5 mg/dL (8.6-10.3) L 12/27/18 14:40 - Clinical Findings Intake & Output: Intake & Output 12/27/18 12/27/18 12/27/18 07:59 15:59 23:59 Intake Total 100 / 100 Output Total 800 / 800 300 / 300 450 / 450 Balance -800 / -800 -300 / -300 -350 / -350 Consult Discharge Plan - Plan Referrals: NONE,PCP [Primary Care Provider] - Elmo Ordoñez MD [Partnered Physician] - 01/18/19 9:45 am <Deborah Sepulveda - Last Filed: 12/27/18 22:48> Date of Encounter: 12/27/18 History of Present Illness Consult date: 12/27/18 Requesting physician: Elmo Ordoñez Reason for consult: other (Critical care management) All Systems: The remainder of the systems were reviewed and are negative Physical Examination Vital Signs: Vital Signs, Last 4 Hours Temp Pulse Resp BP Pulse Ox 12/27/18 17:00 100 22 149/72 97 12/27/18 16:00 98.1 F 93 20 149/71 95 12/27/18 15:30 91 20 149/68 95 12/27/18 14:59 98.2 F 98 22 145/66 94 12/27/18 14:33 100 23 157/73 94 12/27/18 14:17 98 20 168/82 97 12/27/18 14:00 94 20 172/91 97 12/27/18 13:45 92 20 166/85 100 Results - Laboratory Findings CBC and BMP: 12/27/18 14:40 12/27/18 14:40 ABG ABG pH 7.34 pH Units (7.32-7.45) 12/27/18 12:11 ABG pCO2 45 mmHg (35-45) 12/27/18 12:11 ABG pO2 275 mmHg (85-104) H 12/27/18 12:11 ABG O2 Saturation 100 % (95-98) H 12/27/18 12:11 PT/INR, D-dimer PT 12.2 Seconds (9.4-12.1) H 12/26/18 05:09 Abnormal lab findings: Abnormal lab results WBC 12.8 K/mcL (4.3-11.1) H D 12/27/18 14:40 RBC 3.75 M/mcL (3.82-4.97) L 12/27/18 14:40 Hgb 11.1 g/dL (11.5-15.4) L D 12/27/18 14:40 Hct 33.7 % (35.3-44.9) L 12/27/18 14:40 Neutrophils # 11.3 K/mcL (1.6-8.9) H 12/27/18 14:40 PT 12.2 Seconds (9.4-12.1) H 12/26/18 05:09 ABG pO2 275 mmHg (85-104) H 12/27/18 12:11 ABG O2 Saturation 100 % (95-98) H 12/27/18 12:11 ABG Hematocrit 26.0 % (35.3-44.9) L 12/27/18 12:11 ABG Chloride 111 mEq/L (98-107) H 12/27/18 12:11 Potassium 3.4 mEq/L (3.5-5.3) L 12/27/18 12:11 Glucose 153 mg/dL (60-95) H 12/27/18 12:11 Chloride 111 mEq/L (98-107) H 12/27/18 14:40 Creatinine 0.55 mg/dL (0.60-1.20) L 12/27/18 14:40 Glucose 161 mg/dL (70-105) H 12/27/18 14:40 POC Glucose 157 mg/dL (70-99) H 12/27/18 13:42 Calcium 8.5 mg/dL (8.6-10.3) L 12/27/18 14:40 - Clinical Findings Intake & Output: Intake & Output 12/27/18 12/27/18 12/27/18 07:59 15:59 23:59 Intake Total 100 / 100 Output Total 800 / 800 300 / 300 450 / 450 Balance -800 / -800 -300 / -300 -350 / -350 - Attending Attestation I examined this patient and my medical decision-making was reviewed with the Resident Physician. I agree with the documented findings, disposition and treatment plan as described except to the extent set forth below. Patient seen and examined. Labs, radiology, chart personally reviewed. 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 Nicotine patches and incentive spirometry Cardiovascular: stable and monitor for bleeding GI: Nutrition per dietary and GI prophylaxis per routine Heme: DVT prophylaxis per routine ID: per protocol for surgery Renal; urine out put and renal funtion reviewed Endorcine: blood glucose is monitored Lines: all lines checked and no evidence of infections Skin: skin care to prevent pressure ulcers per nursing routine care Discussed with Dr. Ordoñez and thanks for consultation
[2018-12-27] MEDS: Pantoprazole 40 MG VIAL IVP SCH (18:20)
[2018-12-27] MEDS: NALOXONE SL SCH (19:53)
[2018-12-27] MEDS: 0.9 % Sodium Chloride 1,000 ML IVC SCH (19:53)
[2018-12-27] MEDS: BUPRENORPHINE SL SCH (19:53)
[2018-12-27] MEDS: Nicotine 21 MG PATCH.TD24 TD SCH ×2 (20:07→20:17)
[2018-12-28] MEDS: Ketorolac 15 MG/ML VIAL IVP PRN ×2 (03:41→22:07)
[2018-12-28 03:57] LABS: Hematocrit 30.9 % (35.3-44.9); Hemoglobin 10.6 g/dL (11.5-15.4); Mean Corpuscular HGB Conc 34.3 g/dL (31.6-35.5); Mean Corpuscular Hemoglobin 30.1 pg (28.0-33.3); Mean Corpuscular Volume 87.8 fL (83.0-100.0); Platelet Count 149 K/mcL (140-400); Red Blood Count 3.52 M/mcL (3.82-4.97); Red Cell Distribution Width 11.9 % (11.5-14.5)
--- NOTE | 2018-12-28 07:56 | Vascular/[facility] Progress Note ---
Date of Encounter: 12/28/18 Time of Encounter: 07:54 - Assessment and plan (1) Aortic occlusion Current Visit: Yes Status: Acute Patient has had excellent response to aortic thromboendarterectomy with patch angioplasty. She now has restitution of normal pulses and normal color and temperature of feet and legs. No findings of compartment syndrome. Patient is hemodynamically stable. Patient may be transferred from the intensive care unit to [address] [place] [address]. Villeda catheter and arterial line may be discontinued. IV fluid at 75 ML's in our of 0.9 normal saline. Up in chair. Patient may ambulate with assistance. (2) History of intravenous drug use in remission Current Visit: Yes Status: Chronic Patient admits to heroin addiction. She states that she has been without drug use for the last 4-41/2 years. She is on Suboxone twice a day for control of her addiction. (3) Tobacco abuse Current Visit: Yes Status: Chronic The patient has been smoking since age 16. She presently smokes 1-1/2 pack cigarettes a day. Patient was clearly informed of the need for complete tobacco cessation. - Subjective Interval history: Patient is in the intensive care unit bed #12. Patient has no significant problems overnight. Patient states she has no pain or numbness in her lower extremities. Patient is anxious to eat and to have her tubes and IVs removed. The patient is concerned about her Suboxone. Vital Signs, Last 4 Hours Pulse Resp BP Pulse Ox 12/28/18 06:00 116 27 158/77 96 12/28/18 05:00 124 20 151/80 95 12/28/18 04:00 111 20 121/69 95 - Physical Examination General: Present: Conversant, No Apparent Distress HEENT: Present: Atraumatic Neck: Absent: JVD Cardiac: Present: Other (Patient has sinus tachycardia) Lungs: Present: Normal Breath Sounds Neuro: Present: Alert and responsive, No focal deficits noted, Cranial nerves grossly intact Vascular: Present: Normal capillary refill, Pulse, normal, Color/Temperature (Feet are warm and pink), Other (No findings to suggest compartment syndrome) Abdomen: Present: Soft, Other (Hypoactive bowel sounds) Skin: Present: No rashes noted on visualized skin Results 12/28/18 03:45 12/27/18 14:40 Lab Results, Last 24 hours 12/27/18 12/27/18 12/28/18 14:40 14:40 03:45 WBC 12.8 H D 9.6 Hgb 11.1 L D 10.6 L Hct 33.7 L 30.9 L Plt Count 160 149 Sodium 140 Potassium 3.8 Chloride 111 H Carbon Dioxide 24 BUN 10 Creatinine 0.55 L Glucose 161 H Calcium 8.5 L Consult Discharge Plan - Plan Referrals: NONE,PCP [Primary Care Provider] - Elmo Ordoñez MD [Partnered Physician] - 01/18/19 9:45 am
[2018-12-28] MEDS ORDERED: 0.9 % Sodium Chloride 1,000 ML IVC SCH (08:00)
--- NOTE | 2018-12-28 08:07 | Pulmonology Progress Note ---
<CocoInaderek M - Last Filed: 12/28/18 10:31> Date of Encounter: 12/28/18 Objective PUL Vital signs: Last Vital Signs Temp 98.9 F 12/28/18 08:43 Pulse 120 12/28/18 10:00 Resp 18 12/28/18 10:00 BP 164/81 12/28/18 10:00 Pulse Ox 95 12/28/18 10:00 Results - Laboratory Findings CBC and BMP: 12/28/18 03:45 12/27/18 14:40 ABG ABG pH 7.34 pH Units (7.32-7.45) 12/27/18 12:11 ABG pCO2 45 mmHg (35-45) 12/27/18 12:11 ABG pO2 275 mmHg (85-104) H 12/27/18 12:11 ABG O2 Saturation 100 % (95-98) H 12/27/18 12:11 PT/INR, D-dimer PT 12.2 Seconds (9.4-12.1) H 12/26/18 05:09 Abnormal lab findings: Abnormal lab results RBC 3.52 M/mcL (3.82-4.97) L 12/28/18 03:45 Hgb 10.6 g/dL (11.5-15.4) L 12/28/18 03:45 Hct 30.9 % (35.3-44.9) L 12/28/18 03:45 Neutrophils # 11.3 K/mcL (1.6-8.9) H 12/27/18 14:40 PT 12.2 Seconds (9.4-12.1) H 12/26/18 05:09 ABG pO2 275 mmHg (85-104) H 12/27/18 12:11 ABG O2 Saturation 100 % (95-98) H 12/27/18 12:11 ABG Hematocrit 26.0 % (35.3-44.9) L 12/27/18 12:11 ABG Chloride 111 mEq/L (98-107) H 12/27/18 12:11 Potassium 3.4 mEq/L (3.5-5.3) L 12/27/18 12:11 Glucose 153 mg/dL (60-95) H 12/27/18 12:11 Chloride 111 mEq/L (98-107) H 12/27/18 14:40 Creatinine 0.55 mg/dL (0.60-1.20) L 12/27/18 14:40 Glucose 161 mg/dL (70-105) H 12/27/18 14:40 POC Glucose 157 mg/dL (70-99) H 12/27/18 13:42 Calcium 8.5 mg/dL (8.6-10.3) L 12/27/18 14:40 - Clinical Findings Intake & Output: Intake & Output 12/27/18 12/28/18 12/28/18 23:59 07:59 15:59 Intake Total 100 / 100 100 / 100 100 / 100 Output Total 950 / 950 800 / 800 750 / 750 Balance -850 / -850 -700 / -700 -650 / -650 Weight 48.4 kg Consult Discharge Plan - Plan Referrals: NONE,PCP [Primary Care Provider] - Elmo Ordoñez MD [Partnered Physician] - 01/18/19 9:45 am - Attending Attestation I examined this patient and my medical decision-making was reviewed with the Resident Physician. I agree with the documented findings, disposition and treatment plan as described except to the extent set forth below. Patient seen and examined. Labs, radiology, chart personally reviewed. 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, Patient is anxious and I suspect this is from withdrawal and need to give her medication Pulmonary: Acceptable oxygenation and ventilation Cardiovascular: stable GI: Nutrition per dietary and GI prophylaxis per routine Heme: DVT prophylaxis per routine ID: Continue antibiotics and plan to de-escalation Renal; urine out put and renal funtion reviewed Endorcine: blood glucose is monitored Lines: all lines checked and no evidence of infections Skin: skin care to prevent pressure ulcers per nursing routine care <Cindy Noriega - Last Filed: 12/28/18 13:04> Date of Encounter: 12/28/18 Time of Encounter: 08:05 Assessment and Plan (1) Aortic occlusion Current Visit: Yes Status: Acute * Patient is postoperative day one status post aortic endarterectomy with Dr. Ordoñez * Today she states she is jittery as she has not taken her Suboxone today * H&H stable * Added Subutex 8 mg sublingual twice a day * Patient is otherwise nothing by mouth with an NG tube with sufficient output * On maintenance fluids per vascular surgery's recommendations * At this point stable for transfer out of the ICU to N (2) History of intravenous drug use in remission Current Visit: Yes Status: Chronic * Subutex added as she takes Suboxone at home (3) Tobacco abuse Current Visit: Yes Status: Chronic * Nicotine patch daily * Encouraged smoking cessation (4) DVT prophylaxis Current Visit: Yes Status: Acute * SCD in place * No anticoagulants in post-operative period Subjective Interval history: Today the patient is POD1 s/p aortic endarterectomy with Dr. Ordoñez. She notes she is jittery as she has not had her suboxone. She denies any significant pain and has not yet had a bowel movement. Objective PUL Vital signs: Last Vital Signs Temp 98.4 F 12/28/18 03:35 Pulse 116 12/28/18 06:00 Resp 27 12/28/18 06:00 BP 158/77 12/28/18 06:00 Pulse Ox 96 12/28/18 06:00 General appearance: no acute distress Eyes: nonicteric ENT: oropharynx moist Effort: normal Auscultation: bilateral: clear Cardiovascular: regular rate and rhythm Gastrointestinal: normoactive bowel sounds, non-tender Integumentary: normal Extremities: no cyanosis Musculoskeletal: no deformities normal mental status, non-focal exam mood appropriate, anxious Results - Laboratory Findings CBC and BMP: 12/28/18 03:45 12/27/18 14:40 ABG ABG pH 7.34 pH Units (7.32-7.45) 12/27/18 12:11 ABG pCO2 45 mmHg (35-45) 12/27/18 12:11 ABG pO2 275 mmHg (85-104) H 12/27/18 12:11 ABG O2 Saturation 100 % (95-98) H 12/27/18 12:11 PT/INR, D-dimer PT 12.2 Seconds (9.4-12.1) H 12/26/18 05:09 Abnormal lab findings: Abnormal lab results RBC 3.52 M/mcL (3.82-4.97) L 12/28/18 03:45 Hgb 10.6 g/dL (11.5-15.4) L 12/28/18 03:45 Hct 30.9 % (35.3-44.9) L 12/28/18 03:45 Neutrophils # 11.3 K/mcL (1.6-8.9) H 12/27/18 14:40 PT 12.2 Seconds (9.4-12.1) H 12/26/18 05:09 ABG pO2 275 mmHg (85-104) H 12/27/18 12:11 ABG O2 Saturation 100 % (95-98) H 12/27/18 12:11 ABG Hematocrit 26.0 % (35.3-44.9) L 12/27/18 12:11 ABG Chloride 111 mEq/L (98-107) H 12/27/18 12:11 Potassium 3.4 mEq/L (3.5-5.3) L 12/27/18 12:11 Glucose 153 mg/dL (60-95) H 12/27/18 12:11 Chloride 111 mEq/L (98-107) H 12/27/18 14:40 Creatinine 0.55 mg/dL (0.60-1.20) L 12/27/18 14:40 Glucose 161 mg/dL (70-105) H 12/27/18 14:40 POC Glucose 157 mg/dL (70-99) H 12/27/18 13:42 Calcium 8.5 mg/dL (8.6-10.3) L 12/27/18 14:40 - Clinical Findings Intake & Output: Intake & Output 12/27/18 12/28/18 12/28/18 23:59 07:59 15:59 Intake Total 100 / 100 100 / 100 Output Total 950 / 950 800 / 800 Balance -850 / -850 -700 / -700 Weight 48.4 kg
[2018-12-28] MEDS: Nicotine 21 MG PATCH.TD24 TD SCH (08:24)
[2018-12-28] MEDS: Pantoprazole 40 MG VIAL IVP SCH (08:25)
[2018-12-28] MEDS ORDERED: Nicotine 21 MG PATCH.TD24 TD SCH (09:00)
[2018-12-28] MEDS ORDERED: *HR* Buprenorphine HCl 2 MG SUBLINGUAL TABLET SL SCH (09:00)
--- NOTE | 2018-12-28 09:12 | Internal Med Progress Note ---
Hospitalist Progress Note - Encounter Date of Encounter: 12/28/18 Time of Encounter: 09:10 - Subjective Interval History: I have seen and evaluated the patient at bedside. Patient reports feeling a little jittery because she could not sleep last night. denies chest pain, abdominal pain, nausea or vomiting. Patient with NG tube placement post op. As per nurse about 400 cc of dark brown secretion has come out for the past 24 hours. - Exam Vitals: Temp Pulse Resp BP Pulse Ox 98.9 F 116 24 159/77 96 12/28/18 08:43 12/28/18 08:00 12/28/18 08:00 12/28/18 08:00 12/28/18 08:00 Exam: Vitals: Reviewed General: Alert and oriented x4. In mild distress because she has not been able to sleep. Skin: Normal color, no rash, no lesions. HEENT: EOM, pupils equal, round and reactive. Cardiovascular: Tachycardic, normal S1 & S2, no rubs, murmurs or gallops. Lungs: CTA b/l, no wheezes or crackles. Abdomen: Soft, non-tender, no rigidity. clean post op dressing Extremities: 1+ pulse right dorsalis pedis pulse. 2+ b/l posterior tibialis pulses. Neurological: Normal cognition and motor skills. Rest of the physical exam is non contributory - Assessment and Plan (1) Aortic occlusion Current Visit: Yes Status: Acute Assessment and Plan: s/p aortic thromboendarterectomy with patch angioplasty. plan of care as per vascular surgery team On gentle IV hydration Accu-check Q6HRs plus lispro low dose sliding scale If Blood sugar <100 consider changing the fluids to D5NS@75 to avoid hypoglycemia Continue PPIs and anti-emetics (2) History of intravenous drug use in remission Current Visit: Yes Status: Chronic Assessment and Plan: On buprenorphine 8mg SL BID (3) Tobacco abuse Current Visit: Yes Status: Chronic (4) DVT prophylaxis Current Visit: Yes Status: Acute Assessment and Plan: no chemical DVT prophylaxis due to recent vascular surgery. continue intermittent pneumatic compressions. - Summary of Assessment and Plan Summary of Assessment and Plan: patient to remain in the hospital due to aortic thromboendarterectomy with patch angioplasty. Patient NPO with NG tube placed. Potential discharge in 1-2 days. - Time Spent with Patient Total time spent is greater than 50% in coordination of care (as documented) at patient's floor/unit and/or counseling patient: 25 - 35 minutes (38) Plan of Care Discussed with: patient Internal Medicine: Result - Labs CBC & Chem 7: 12/28/18 03:45 12/27/18 14:40 Labs: Short CBC 12/27/18 12/28/18 Range/Units 14:40 03:45 WBC 12.8 H D 9.6 (4.3-11.1) K/mcL Hgb 11.1 L D 10.6 L (11.5-15.4) g/dL Hct 33.7 L 30.9 L (35.3-44.9) % Plt Count 160 149 (140-400) K/mcL Neutrophils # 11.3 H (1.6-8.9) K/mcL BMP 12/27/18 14:40 Sodium 140 Potassium 3.8 Chloride 111 H Carbon Dioxide 24 BUN 10 Creatinine 0.55 L Glucose 161 H Calcium 8.5 L - ABG Interpretation ABG results: ABG ABG pH 7.34 pH Units (7.32-7.45) 12/27/18 12:11 ABG pCO2 45 mmHg (35-45) 12/27/18 12:11 ABG pO2 275 mmHg (85-104) H 12/27/18 12:11 ABG O2 Saturation 100 % (95-98) H 12/27/18 12:11 PT/INR, D-dimer PT 12.2 Seconds (9.4-12.1) H 12/26/18 05:09 - Impressions Impressions Chest X-Ray 12/27/18 14:25 IMPRESSION: Right IJ central venous catheter with tip in the distal SVC. Enteric tube present with side-port in the proximal body of the stomach. Distal tip excluded from field of view. No evidence for acute cardiopulmonary process to include no pneumothorax. D/ : / 12/27/2018 14:43:37 Christian Hawkins MD / marciano Interpreting Provider: Christian Hawkins MD Consult Discharge Plan - Plan Referrals: NONE,PCP [Primary Care Provider] - Elmo Ordoñez MD [Partnered Physician] - 01/18/19 9:45 am
[2018-12-28] MEDS ORDERED: *HR* Labetalol 20 MG/4 ML SYRINGE IVP PRN (12:50)
[2018-12-28] MEDS ORDERED: Naloxone 0.4 MG/ML INJ IVP PRN (12:50)
[2018-12-28] MEDS ORDERED: Ondansetron 4 MG/2 ML VIAL IVP PRN (12:50)
[2018-12-28] MEDS: *HR* Buprenorphine HCl 2 MG SUBLINGUAL TABLET SL SCH (20:50)
[2018-12-28] MEDS: 0.9 % Sodium Chloride 1,000 ML IVC SCH (21:12)
[2018-12-29] MEDS: 0.9 % Sodium Chloride 1,000 ML IVC SCH ×3 (04:44→23:34)
[2018-12-29] MEDS: Ketorolac 15 MG/ML VIAL IVP PRN ×3 (05:49→20:53)
[2018-12-29] MEDS: Nicotine 21 MG PATCH.TD24 TD SCH (08:20)
[2018-12-29] MEDS: Pantoprazole 40 MG VIAL IVP SCH (08:20)
[2018-12-29] MEDS: *HR* Buprenorphine HCl 2 MG SUBLINGUAL TABLET SL SCH ×2 (08:20→20:53)
[2018-12-29] MEDS ORDERED: *HR* Metoprolol 5 MG/5 ML VIAL IVP PRN (14:34)
--- NOTE | 2018-12-29 15:11 | Internal Med Progress Note ---
Hospitalist Progress Note - Encounter Date of Encounter: 12/29/18 Time of Encounter: 15:09 - Subjective Interval History: I have seen and evaluated the patient at bedside. patient reports abdominal discomfort, denies pain. she also reports feeling anxious. denies nausea, vomiting or abdominal pain. reports she has been passing gas. - Exam Vitals: Temp Pulse Resp BP Pulse Ox 98.5 F 130 23 154/84 100 12/29/18 10:52 12/29/18 14:00 12/29/18 14:00 12/29/18 14:00 12/29/18 14:00 Exam: Vitals: Reviewed General: Alert and oriented x4. In mild distress due to abdominal discomfort. Cardiovascular: Tachycardic, normal S1 & S2, no rubs, murmurs or gallops. Lungs: CTA b/l, no wheezes or crackles. Abdomen: Soft, non-tender, no rigidity. clean post op dressing. NABS in all 4 quadrants Extremities: no edema. palpable pulses b/l lower extr Neurological: Normal cognition Rest of the physical exam is non contributory - Assessment and Plan (1) Aortic occlusion Current Visit: Yes Status: Acute Assessment and Plan: s/p aortic thromboendarterectomy with patch angioplasty. vascular surgery recommended to start the patient on dual anti-platelets lipid panel ordered started on atorvastatin 40mg/PO daily continue IV hydration while patient clear liquid diet will advance as tolerated. On Accu-check Q6HRs plus lispro low dose sliding scale On pantoprazole 40mg/IV daily continue ondansetron 4mg/IV Q4HR PRN (2) History of intravenous drug use in remission Current Visit: Yes Status: Chronic Assessment and Plan: patient is on buprenorphine 8mg/SubL BID (3) Tobacco abuse Current Visit: Yes Status: Chronic (4) Tachycardia Current Visit: Yes Status: Acute Assessment and Plan: patient with sinus tachycardia. possible due to pain and abdominal discomfort. metoprolol 2.5mg/IV Q6HR PRN for sustain HR >120 started on carvedilol 6.25mg/PO BID DVT Prophylaxis: no chemical dvt prophylaxis due to sent vascular procedure. will discuss with vascular surgery about resuming heparin. continue intermittent pneumatic compression - Summary of Assessment and Plan Summary of Assessment and Plan: patient to remain in the hospital. recent vascular procedure. NPO, tachycardic. Potential discharge in 1-2 days. - Time Spent with Patient Total time spent is greater than 50% in coordination of care (as documented) at patient's floor/unit and/or counseling patient: Greater than 35 minutes (40) Plan of Care Discussed with: patient (and the nurse) Internal Medicine: Result - Labs CBC & Chem 7: 12/28/18 03:45 12/27/18 14:40 - ABG Interpretation ABG results: ABG ABG pH 7.34 pH Units (7.32-7.45) 12/27/18 12:11 ABG pCO2 45 mmHg (35-45) 12/27/18 12:11 ABG pO2 275 mmHg (85-104) H 12/27/18 12:11 ABG O2 Saturation 100 % (95-98) H 12/27/18 12:11 PT/INR, D-dimer PT 12.2 Seconds (9.4-12.1) H 12/26/18 05:09 Consult Discharge Plan - Plan Referrals: NONE,PCP [Primary Care Provider] - Elmo Ordoñez MD [Partnered Physician] - 01/18/19 9:45 am
--- NOTE | 2018-12-29 15:47 | Vascular/Endovas Progress Note ---
Date of Encounter: 12/29/18 Time of Encounter: 15:45 - Assessment and plan (1) Aortic occlusion Current Visit: Yes Status: Acute Patient has had excellent response to aortic thromboendarterectomy with patch angioplasty. She now has restitution of normal pulses and normal color and temperature of feet and legs. No findings of compartment syndrome. Patient is hemodynamically stable. Patient may be transferred from the intensive care unit IV fluid at 75 ML's of 0.9 normal saline. This may be hep-locked when patient tolerates full liquids. Up in chair. Patient may ambulate with assistance. (2) History of intravenous drug use in remission Current Visit: Yes Status: Chronic Patient admits to heroin addiction. She states that she has been without drug use for the last 4-41/2 years. She is on Suboxone twice a day for control of her addiction. (3) Tobacco abuse Current Visit: Yes Status: Chronic The patient has been smoking since age 16. She presently smokes 1-1/2 pack cigarettes a day. Patient was clearly informed of the need for complete tobacco cessation. - Subjective Interval history: Patient is in the intensive care unit bed #12. Patient is postoperative day #2. Patient has no significant problems overnight. Patient states she has no pain or numbness in her lower extremities. Patient appears mildly agitated but controllable. Vital Signs, Last 4 Hours Temp Pulse Resp BP Pulse Ox 12/29/18 15:28 98.3 F 12/29/18 14:00 130 23 154/84 100 12/29/18 12:00 126 20 160/81 100 - Physical Examination General: Present: Conversant, No Apparent Distress HEENT: Present: Atraumatic Cardiac: Present: Other (Sinus tachycardia) Lungs: Present: Normal Breath Sounds Neuro: Present: Alert and responsive, No focal deficits noted Vascular: Present: Normal capillary refill, Pulse, normal, Color/Temperature (Feet are warm and pink), Surgical incisions (Dry dressing on surgical incision) Abdomen: Present: Soft, Non-tender, Other (Active bowel sounds) Results 12/28/18 03:45 12/27/18 14:40 Consult Discharge Plan - Plan Referrals: NONE,PCP [Primary Care Provider] - Elmo Ordoñez MD [Partnered Physician] - 01/18/19 9:45 am
[2018-12-29] MEDS: *HR* Heparin 5,000 UNIT/ML VIAL SQ SCH (18:09)
[2018-12-30] MEDS: *HR* Heparin 5,000 UNIT/ML VIAL SQ SCH ×2 (06:16→17:14)
[2018-12-30] MEDS: Nicotine 21 MG PATCH.TD24 TD SCH (08:25)
[2018-12-30] MEDS: *HR* Buprenorphine HCl 2 MG SUBLINGUAL TABLET SL SCH ×2 (08:25→21:19)
[2018-12-30] MEDS: Pantoprazole 40 MG VIAL IVP SCH (08:26)
[2018-12-30] MEDS: Aspirin Enteric Coated 81 MG Tablet PO SCH (08:26)
[2018-12-30 09:09] LABS: BUN/Creatinine Ratio 33 (6-26); Blood Urea Nitrogen 17 mg/dL (6-20); Calcium 8.6 mg/dL (8.6-10.3); Carbon Dioxide 21 mEq/L (23-29); Chloride 105 mEq/L (98-107); Chol/HDL Ratio 3.8 (0-4.9); Cholesterol 157 mg/dL (< 200); Glucose 79 mg/dL (70-105); HDL Cholesterol 41 mg/dL (40-59); LDL Cholesterol,Calculated 90 mg/dL (0-99); Osmolality,Calculated 290 (280-300); Phosphorous 2.4 mg/dL (2.7-4.5); Potassium 3.2 mEq/L (3.5-5.1); Sodium 140 mEq/L (136-145); Triglycerides 128 mg/dL (< 150); eGFR For Non-African Americans > 60 (> 60)
[2018-12-30 09:18] LABS: Basophils % 0.4 %; Eosinophils # 0.1 K/mcL (0.0-0.6); Eosinophils % 0.5 %; Hematocrit 32.7 % (35.3-44.9); Hemoglobin 11.1 g/dL (11.5-15.4); Immature Granulocytes % 0.5 % (0-4); Immature Platelets 4.2 % (1.1-6.1); Lymphocytes # 2.7 K/mcL (0.6-4.6); Lymphocytes % 24.3 %; Mean Corpuscular HGB Conc 33.9 g/dL (31.6-35.5); Mean Corpuscular Hemoglobin 30.5 pg (28.0-33.3); Mean Corpuscular Volume 89.8 fL (83.0-100.0); Mean Platelet Volume 10.3 fL (9.4-12.4); Monocytes # 0.9 K/mcL (0.0-1.3); Monocytes % 8.2 %; Neutrophils # 7.3 K/mcL (1.6-8.9); Platelet Count 240 K/mcL (140-400); Red Blood Count 3.64 M/mcL (3.82-4.97); Red Cell Distribution Width 11.9 % (11.5-14.5); Segmented Neutrophils % 66.1 %
--- NOTE | 2018-12-30 09:30 | Electrocardiograph Report ---
[place] [id number] Test Date: 2018-12-29 Pat Name: Flori Bautista Department: 109 Room: 12 Gender: F Tray Checker: RACH : 1975 Requested By: Raghav Reed Order Number: [id number] Reading MD: Horacio Fung Measurements Intervals [place] Rate: 120 P: 72 [place]: 140 QRS: 61 QRSD: 77 T: -7 QT: 315 QTc: 387 Interpretive Statements SINUS TACHYCARDIA NONSPECIFIC ST & T-WAVE ABNORMALITY Electronically Signed On 12-30-2018 9:28:49 EDT by Horacio Fung
--- NOTE | 2018-12-30 14:55 | Vascular/Endovas Progress Note ---
Date of Encounter: 12/30/18 Time of Encounter: 14:53 - Assessment and plan (1) Aortic occlusion Current Visit: Yes Status: Acute Patient has had excellent response to aortic thromboendarterectomy with patch angioplasty. She now has restitution of normal pulses and normal color and temperature of feet and legs. No findings of compartment syndrome. Patient is hemodynamically stable. Patient transferred from the intensive care unit to [facility] today. Patient is to ambulate in room and in the hallway. Patient is progressing well and may be discharged when cleared medically. Patient will continue on antiplatelet and antilipid agents as well as nicotine patches at home. I've asked the patient to follow-up with me in approximately 2 weeks. (2) History of intravenous drug use in remission Current Visit: Yes Status: Chronic Patient admits to heroin addiction. She states that she has been without drug use for the last 4-41/2 years. She is on Suboxone twice a day for control of her addiction. Continue Suboxone at home. (3) Tobacco abuse Current Visit: Yes Status: Chronic The patient has been smoking since age 16. She presently smokes 1-1/2 pack cigarettes a day. Patient was clearly informed of the need for complete tobacco cessation. Patient to use nicotine patches at home. - Subjective Interval history: Patient was transferred earlier today to [facility]. Patient is postoperative day #3 following aortic thromboendarterectomy with Dacron patch angioplasty of in frarenal abdominal aorta. Patient has no problems overnight. Patient states she has no pain/numbness in her lower extremities. Patient remains mildly agitated but controllable. Patient is tolerating liquid diet. Patient had bowel movement last night. Vital Signs, Last 4 Hours Temp Pulse Resp BP Pulse Ox 12/30/18 12:47 97.6 F 95 19 132/70 97 - Physical Examination General: Present: Conversant, No Apparent Distress HEENT: Present: Atraumatic, Normocephaly Neck: Absent: JVD Cardiac: Present: Reg Rate and Rhythm Lungs: Present: Normal Breath Sounds Neuro: Present: Alert and responsive, No focal deficits noted, Cranial nerves grossly intact Vascular: Present: Normal capillary refill, Pulse, normal, Color/Temperature (Feet are warm and pink.), Surgical incisions (Abdominal incision is clean and dry. Steri-Strips are intact. No signs of infection.). Absent: Edema Abdomen: Present: Soft, Non-tender, Other (Active bowel sounds) Results 12/30/18 08:35 12/30/18 08:35 Lab Results, Last 24 hours 12/30/18 12/30/18 08:35 08:35 WBC 11.1 Hgb 11.1 L Hct 32.7 L Plt Count 240 D Sodium 140 Potassium 3.2 L Chloride 105 Carbon Dioxide 21 L BUN 17 Creatinine 0.52 L Glucose 79 Calcium 8.6 Magnesium 2.0 Consult Discharge Plan - Plan Additional Instructions: No lifting greater than 10 pounds. No automobile driving. Patient may ambulate both inside and outside. Patient may use stairs as tolerated. Follow-up with Dr. Ordoñez on January 18 Referrals: NONE,PCP [Primary Care Provider] - Elmo Ordoñez MD [Partnered Physician] - 01/18/19 9:45 am
--- NOTE | 2018-12-30 16:08 | Discharge Summary ---
- NOTES TO OUTPATIENT PROVIDER Notes to Outpatient Provider: Follow up with vascular surgery within 2 week of hospital discharge Date of Encounter: 12/30/18 Time of Encounter: 16:05 - Discharge Diagnosis (1) Aortic occlusion Priority: Primary Status: Resolved (2) History of intravenous drug use in remission Priority: Secondary Status: Chronic (3) Tobacco abuse Priority: Secondary Status: Chronic (4) Tachycardia Priority: Secondary Status: Acute Hospital course: Ms. Bautista is a 43 year old female PMH of hepatitis, depression and substance abuse. present to ER for bilateral leg numbness. Past medical history is significant for IV drug use several years ago, hep C, S/P tubal ligation. n the emergency room, CTA shows infrarenal aortic occlusion. CT L-spine shows no significant acute change. Patient was started on heparin drip and admitted for further management. Vascular surgery consulted and patient underwent abdominal aortic thromboendarterectomy with dacron patch angioplasty. Patient has had excellent response to aortic thromboendarterectomy with patch angioplasty. She now has restitution of normal pulses and normal color and temperature of feet and legs. No findings of compartment syndrome. Patient is hemodynamically stable to be discharged home. patient is being discharged on dual antiplatelet therapy. Recommended to follow up with Vascular surgery within 2 weeks of hospital discharge. - Time Spent with Patient Total time spent providing and/or coordinating discharge services: Time spent: Greater than 30 minutes (35) - Discharge Medications Prescriptions: New Aspirin Enteric Coated [Aspirin EC] 81 mg PO DAILY 30 Days #30 tablet. Atorvastatin [Lipitor] 40 mg PO HS 30 Days #30 tablet Carvedilol [Coreg] 12.5 mg PO BIDWM 30 Days #60 tablet Clopidogrel [Plavix] 75 mg PO DAILY 30 Days #30 tablet Continue Buprenorphine HCl/Naloxone HCl [Buprenorphin-Naloxon 8-2 mg Sl] 1 tab SL BID Home Medications: Buprenorphine HCl/Naloxone HCl [Buprenorphin-Naloxon 8-2 mg Sl] 1 tab SL BID 12/25/18 [History] Aspirin Enteric Coated [Aspirin EC] 81 mg PO DAILY 30 Days #30 tablet. 12/30/18 [Rx] Atorvastatin [Lipitor] 40 mg PO HS 30 Days #30 tablet 12/30/18 [Rx] Carvedilol [Coreg] 12.5 mg PO BIDWM 30 Days #60 tablet 12/30/18 [Rx] Clopidogrel [Plavix] 75 mg PO DAILY 30 Days #30 tablet 12/30/18 [Rx] Allergies/Adverse Reactions: Allergy/AdvReac Type Severity Reaction Status Date / Time Penicillins [PCN] Allergy Rash Verified 12/23/18 21:48 Date of admission: 12/24/18 18:41 Primary care physician: PCP NONE Consults: 12/24/18 04:51 Consult to Vascular Surgery [CONS] Stat Consulting Provider: Vascular Surgery Teri Reason for Consult: aorto-occlusive disease Time Notified: 04:51 Call Completed: Yes 12/24/18 11:31 Consult to Cardiology [CONS] Routine Comment: Consulting Provider: Cardiology [place] Reason for Consult: Aortic oclusion, vascular saw pt, recommend cardio consult to figure out source of emboli and evaluate risk for surgery. Call Completed: No 12/28/18 08:50 Consult to Pulmonology [CONS] Routine Consulting Provider: Pulm Crit Care & Sleep [place] Reason for Consult: ICU post-op care per Tiago request Time Notified: 08:51 Call Completed: Yes - Constitutional Vitals: Temp Pulse Resp BP Pulse Ox 97.5 F L 70 18 119/75 97 12/30/18 15:37 12/30/18 15:37 12/30/18 15:37 12/30/18 15:37 12/30/18 15:37 Exam: Vitals: Reviewed General: Alert and oriented x4. no acute distress Cardiovascular: Tachycardic, normal S1 & S2, no rubs, murmurs or gallops. Lungs: CTA b/l, no wheezes or crackles. Abdomen: Soft, non-tender, no rigidity. clean post op dressing. NABS in all 4 quadrants Extremities: no edema. palpable pulses b/l lower extr Neurological: Normal cognition Rest of the physical exam is non contributory - Patient Status Disposition: Home, Self-Care Condition: Good Functional capacity at discharge: independent ambulation Overall status at discharge: patient is progressing back to baseline - Discharge Instructions Follow Up With: NONE,PCP [Primary Care Provider] - Elmo Ordoñez MD [Partnered Physician] - 01/18/19 9:45 am Additional Instructions: No lifting greater than 10 pounds. No automobile driving. Patient may ambulate both inside and outside. Patient may use stairs as tolerated. Follow-up with Dr. Ordoñez on January 18 - Diet and Activity Activity: resume usual activities as tolerated Diet: low salt diet
[2018-12-30] MEDS: 0.9 % Sodium Chloride 1,000 ML IVC SCH (22:22)
[2018-12-31] MEDS: Ketorolac 15 MG/ML VIAL IVP PRN (03:52)
[2018-12-31] MEDS: *HR* Heparin 5,000 UNIT/ML VIAL SQ SCH ×2 (05:20→16:54)
[2018-12-31] MEDS ORDERED: Haloperidol Lactate 5 MG/ML VIAL IM ONE (06:25)
--- NOTE | 2018-12-31 06:32 | Event Note ---
Date of Encounter: 12/31/18 Time of Encounter: 05:15 Notified by nurse of patients continued bizarre behavior despite continuing to be alert and oriented. Assessed patient at bedside and called psych television repairer Dr Burrell who suggested 5mg dose of IM Haldol after discussing patient history and will plan to see patient later today. Haldol ordered, telemetry monitoring ordered, nurse updated.
[2018-12-31] MEDS: 0.9 % Sodium Chloride 1,000 ML IVC SCH (08:20)
[2018-12-31] MEDS: Nicotine 21 MG PATCH.TD24 TD SCH (08:34)
[2018-12-31] MEDS: *HR* Buprenorphine HCl 2 MG SUBLINGUAL TABLET SL SCH ×2 (08:34→21:20)
[2018-12-31] MEDS: Aspirin Enteric Coated 81 MG Tablet PO SCH (08:34)
[2018-12-31] MEDS: Pantoprazole 40 MG VIAL IVP SCH (08:35)
[2018-12-31 11:35] LABS: Amphetamine Screen,Urine Negative ng/mL (Cutoff=1000); Barbiturate Screen,Urine Negative ng/mL (Cutoff=200); Benzodiazepines Screen,Urine Positive ng/mL (Cutoff=200); Cannabinoid Screen,Urine Negative ng/mL (Cutoff = 50); Cocaine Screen,Urine Negative ng/mL (Cutoff= 300); Opiate Screen,Urine Negative ng/mL (Cutoff=300); Phencyclidine Screen,Urine Negative ng/mL (Cutoff=25)
--- NOTE | 2018-12-31 14:10 | Consult Note ---
Date of Encounter: 12/31/18 Time of Encounter: 13:00 Assessment & Recommendation (1) Delirium due to another medical condition, acute, hyperactive Current visit: Yes Status: Acute Assessment & Recommendation: This patient has had acute onset of confusion, disorganized thinking, some impairment of orientation, physical hyperactivity that is not severe, perseveration, and bizarre statements. She is alert and generally cooperative. She is on no new meds, but is S/P surgery. Patient meets some of the criteria for delirium. Etiology may be due to stress of surgery and prolonged stay in hospital or may be organic. Would suggest the following to R/O possibilities related to organic. 1. Ammonia level, Na+ level 2. B12 and folate levels 3. Heavy metal assay 4. Blood level of suboxone 5. R/O UTI 2. Suggest trying a low dose of Risperdal 1-2mg/d to see if this helps. History of Present Illness Requesting Physician: Raghav Reed MD History of present illness: Ms. Bautista is a 43 year old female admitted to hospital for abdominal aortic thromboendarterectomy with dacron patch angioplasty. Patient had excellent response to aortic thromboendarterectomy with patch angioplasty. Psychiatry was consulted due to a change in MS. The patient was describes as being alert and oriented, but not making sense when she talked and trying to manipulate some of the medical devices. The patient has not had any change in medical status per hospitalist. Labs per hospitalist are considered within range and consistent with her medical condition. Patient has a hx of SUDS and takes Subutex. Patient is on SSI for leaning disability. No prior psych hospitalizations per patient. Patient reported to be well hydrated, infection free, has had BM and urinating okay. Nutrition good. Pt. is ambulatory. No new meds started before the change in MS. Patient is not on any steroids. On interview with this provider, patient is cooperative, with some increase in psychomotor activity. She begins talking and manipulating cups and objects on her tray table before introductions are made. Patient states that she feels like she is cramping feels weird. She states that she is pulling things out of her mouth. She rambles and has some loose associations. She denies depression, anxiety, SI/HI, A/V hallucinations,denies paranoia or other psychotic symptoms. Patient cannot stay focused on one topic for long and perseverates about a fall she had and something about her dog. On MS patient is not oriented to day or month. She is oriented to place and situation. Patient has a learning disability so says she cannot do math. Generally patient too distracted to complete any formal MS. CC: Raghav Reed MD Past Med Surg Social Fam HX - Past Medical History Medical history: hepatitis - Past Psychiatric History Psychiatric history: Reports: other Past psychiatric history details: SUDS, on Subutex Family psychiatric history: Unknown Family History of Suicide: Unknown - Social History Smoking Status: Unknown if ever smoked Smokeless Tobacco Status: No Alcohol use: none Drug use: other - Family History Mother History Unknown: Yes Medications & Allergies Buprenorphine HCl/Naloxone HCl [Buprenorphin-Naloxon 8-2 mg Sl] 1 tab SL BID 12/25/18 [History] Aspirin Enteric Coated [Aspirin EC] 81 mg PO DAILY 30 Days #30 tablet. 12/30/18 [Rx] Atorvastatin [Lipitor] 40 mg PO HS 30 Days #30 tablet 12/30/18 [Rx] Carvedilol [Coreg] 12.5 mg PO BIDWM 30 Days #60 tablet 12/30/18 [Rx] Clopidogrel [Plavix] 75 mg PO DAILY 30 Days #30 tablet 12/30/18 [Rx] Allergy/AdvReac Type Severity Reaction Status Date / Time Penicillins [PCN] Allergy Rash Verified 12/23/18 21:48 Review of Systems Constitutional: Reports: other (S/P endarterectomy) Eyes: Denies: eye pain, vision change Ears, Nose, Throat: Denies: ear pain, throat pain, dental pain, hearing loss, congestion Cardiovascular: Reports: edema (legs). Denies: chest pain, palpitations, dyspnea on exertion Respiratory: Denies: cough, dyspnea, wheezes Gastrointestinal: Reports: other (bloating). Denies: abdominal pain, nausea, vomiting, diarrhea, constipation Genitourinary female: Denies: urgency, dysuria, frequency, abnormal menses, dyspareunia Musculoskeletal: Reports: other (pain in shoulder and back). Denies: joint swelling, joint pain Integumentary: Denies: rash, lesions, pruritus Neurological: Reports: confusion, memory loss. Denies: headache, weakness, nu mbness Psychiatric: Reports: memory loss, difficulty concentrating Endocrine: Denies: fatigue, heat or cold intolerance Hematologic/Lymphatic: Denies: easy bruising, lymphadenopathy Allergic/Immunologic: Denies: urticaria, itchy eyes Psychiatry Exam - Constitutional Vitals: Temp Pulse Resp BP Pulse Ox 98.5 F 85 20 164/97 98 12/31/18 06:51 12/31/18 06:51 12/31/18 06:51 12/31/18 06:51 12/31/18 06:51 General appearance: age & developmentally appropriate, well-groomed, well- nourished - Musculoskeletal Gait: other Station: relaxed Strength & Tone: normal for patient - Psychiatric Patient Orientation: Yes Person, Yes Place, Yes Circumstance Level of alertness: Alert Behavior: cooperative, restless, distractible Psychomotor activity: Repetitive movements Eye Contact: Maintains Eye Contact Mood Description: Euthymic/stable Affect description: constricted Speech Volume: Normal Speech pattern: spontaneous, disorganized, rambling, excessive, repetetive Language & Vocabulary: consistent with education Thought Process: Loose Associations, Tangential, Flight of Ideas, Perseveration Thought Content: Yes Somatic delusion Perceptual Disturbances: No Auditory hallucinations, No Visual hallucinations Attention Span Ability: Unable to Focus Memory Description: Immediate Intact, Recent Impaired Patient Reliability: Not Reliable Historian Fund of knowledge: Yes abstraction ability, Yes average Intelligence Estimate: Below Average Judgment: Limited Insight: Minimal Results - Drug Levels and Toxicology Drug Levels and Toxicology: Drug Levels and Toxicity 12/31/18 11:05 Urine Opiates Screen Negative Ur Barbiturates Screen Negative Ur Phencyclidine Scrn Negative Ur Amphetamines Screen Negative U Benzodiazepines Scrn Positive H Urine Cocaine Screen Negative U Marijuana (THC) Screen Negative - Labs Labs: Laboratory Last Values WBC 11.1 K/mcL (4.3-11.1) 12/30/18 08:35 RBC 3.64 M/mcL (3.82-4.97) L 12/30/18 08:35 Hgb 11.1 g/dL (11.5-15.4) L 12/30/18 08:35 Hct 32.7 % (35.3-44.9) L 12/30/18 08:35 MCV 89.8 fL (83.0-100.0) 12/30/18 08:35 MCH 30.5 pg (28.0-33.3) 12/30/18 08:35 MCHC 33.9 g/dL (31.6-35.5) 12/30/18 08:35 RDW 11.9 % (11.5-14.5) 12/30/18 08:35 Plt Count 240 K/mcL (140-400) D 12/30/18 08:35 MPV 10.3 fL (9.4-12.4) 12/30/18 08:35 Immature Gran % 0.5 % (0-4) 12/30/18 08:35 Seg Neutrophils % 66.1 % 12/30/18 08:35 Lymphocytes % 24.3 % 12/30/18 08:35 Monocytes % 8.2 % 12/30/18 08:35 Eosinophils % 0.5 % 12/30/18 08:35 Basophils % 0.4 % 12/30/18 08:35 Neutrophils # 7.3 K/mcL (1.6-8.9) 12/30/18 08:35 Lymphocytes # 2.7 K/mcL (0.6-4.6) 12/30/18 08:35 Monocytes # 0.9 K/mcL (0.0-1.3) 12/30/18 08:35 Eosinophils # 0.1 K/mcL (0.0-0.6) 12/30/18 08:35 Basophils # 0.0 K/mcL (0.0-0.2) 12/30/18 08:35 Immature Plt Fraction 4.2 % (1.1-6.1) 12/30/18 08:35 PT 12.2 Seconds (9.4-12.1) H 12/26/18 05:09 INR 1.1 12/26/18 05:09 APTT 26.2 Seconds (26.0-36.0) 12/23/18 23:41 Heparin Anti-Xa, Unfract 0.62 IU/mL (0.30-0.70) 12/27/18 07:02 ABG pH 7.34 pH Units (7.32-7.45) 12/27/18 12:11 ABG pCO2 45 mmHg (35-45) 12/27/18 12:11 ABG pO2 275 mmHg (85-104) H 12/27/18 12:11 ABG HCO3 24 mEq/L (21-27) 12/27/18 12:11 ABG Total CO2 25 mEq/L (20-26) 12/27/18 12:11 ABG O2 Saturation 100 % (95-98) H 12/27/18 12:11 ABG Base Excess -2 mEq/L (-2 to 3) 12/27/18 12:11 ABG Hematocrit 26.0 % (35.3-44.9) L 12/27/18 12:11 ABG Chloride 111 mEq/L (98-107) H 12/27/18 12:11 Sodium 143 mEq/L (135-148) 12/27/18 12:11 Potassium 3.4 mEq/L (3.5-5.3) L 12/27/18 12:11 Glucose 153 mg/dL (60-95) H 12/27/18 12:11 Sodium 140 mEq/L (136-145) 12/30/18 08:35 Potassium 3.2 mEq/L (3.5-5.1) L 12/30/18 08:35 Chloride 105 mEq/L (98-107) 12/30/18 08:35 Carbon Dioxide 21 mEq/L (23-29) L 12/30/18 08:35 BUN 17 mg/dL (6-20) 12/30/18 08:35 Creatinine 0.52 mg/dL (0.60-1.20) L 12/30/18 08:35 Est GFR ( Amer) > 60 (> 60) 12/30/18 08:35 Est GFR (Non-Af Amer) > 60 (> 60) 12/30/18 08:35 BUN/Creatinine Ratio 33 (6-26) H 12/30/18 08:35 Glucose 79 mg/dL (70-105) 12/30/18 08:35 POC Glucose 94 mg/dL (70-99) 12/29/18 04:20 Calculated Osmolality 290 (280-300) 12/30/18 08:35 Calcium 8.6 mg/dL (8.6-10.3) 12/30/18 08:35 Phosphorus 2.4 mg/dL (2.7-4.5) L 12/30/18 08:35 Magnesium 2.0 mg/dL (1.6-2.6) 12/30/18 08:35 Triglycerides 128 mg/dL (< 150) 12/30/18 08:35 Cholesterol 157 mg/dL (< 200) 12/30/18 08:35 LDL Cholesterol, Calc 90 mg/dL (0-99) 12/30/18 08:35 VLDL Cholesterol, Calc 26 mg/dL (< 31) 12/30/18 08:35 HDL Cholesterol 41 mg/dL (40-59) 12/30/18 08:35 Cholesterol/HDL Ratio 3.8 (0-4.9) 12/30/18 08:35 Arterial Blood Ionized Calcium 1.31 mmol/L (1.15-1.35) 12/27/18 12:11 POC Urine HCG, Qual Negative (Negative) 12/27/18 07:51 Urine Opiates Screen Negative ng/mL (Tvpgzl=802) 12/31/18 11:05 Ur Barbiturates Screen Negative ng/mL (Qwwwfm=743) 12/31/18 11:05 Ur Phencyclidine Scrn Negative ng/mL (Cutoff=25) 12/31/18 11:05 Ur Amphetamines Screen Negative ng/mL (Peudwt=3750) 12/31/18 11:05 U Benzodiazepines Scrn Positive ng/mL (Sgxklw=947) H 12/31/18 11:05 Urine Cocaine Screen Negative ng/mL (Cutoff= 300) 12/31/18 11:05 U Marijuana (THC) Screen Negative ng/mL (Cutoff = 50) 12/31/18 11:05 Ur Drug Screen Interp See Below 12/31/18 11:05 Blood Type B POSITIVE 12/26/18 17:08 Antibody Screen NEGATIVE 12/26/18 17:08 Consult Discharge Plan - Plan Additional Instructions: No lifting greater than 10 pounds. No automobile driving. Patient may ambulate both inside and outside. Patient may use stairs as tolerated. Follow-up with Dr. Ordoñez on January 18 Referrals: NONE,PCP [Primary Care Provider] - Elmo Ordoñez MD [Partnered Physician] - 01/18/19 9:45 am Prescriptions: Aspirin Enteric Coated [Aspirin EC] 81 mg PO DAILY 30 Days #30 tablet. Atorvastatin [Lipitor] 40 mg PO HS 30 Days #30 tablet Carvedilol [Coreg] 12.5 mg PO BIDWM 30 Days #60 tablet Clopidogrel [Plavix] 75 mg PO DAILY 30 Days #30 tablet
--- NOTE | 2018-12-31 14:33 | Event Note ---
Date of Encounter: 12/31/18 Time of Encounter: 14:26 I have seen and evaluated the patient. patient very hyper-active, with raising thoughts, denies homicidal or suicidal ideation. Physical exam: Vitals: Reviewed General: Alert and oriented x4. No distress, hyper-active Cardiovascular: RRR, normal S1 & S2, no rubs, murmurs or gallops. Lungs: CTA b/l, no wheezes or crackles. Abdomen: Soft, non-tender, no rigidity. NABS in all 4 quadrants Extremities: no edema. palpable pulses b/l lower extr Neurological: No focal neurological deficits Rest of the physical exam is non contributory Assessment and Plan 1. Possible acute manic attack 2. Aortic occlusion s/p aortic thromboendarterectomy with patch angioplasty 3. Substance abuse 4. VTE prophylaxis 5. Tobacco abuse 6. Hypertension Plan psychiatry has been consulted patient is medically stable to A1 if recommended by psychiatry continue dual anti-platelet therapy and atorvastatin increase carvedilol to 25mg/PO BID continue Subutex will discontinue PPI, continue anti-emetics On heparin subq Plan pending Psychiatry evaluation for discharge planning.
--- NOTE | 2018-12-31 14:40 | Vascular/Endovas Progress Note ---
Date of Encounter: 12/31/18 Time of Encounter: 14:38 - Assessment and plan (1) Aortic occlusion Current Visit: Yes Status: Acute Doing well. She has palpable femoral pulses. She denies any pain in her lower extremities. The patient can be discharged from vascular standpoint when she is medically stable. (2) Delirium due to another medical condition, acute, hyperactive Current Visit: Yes Status: Acute - Subjective Interval history: Doing well. She denies any back pain or leg pain. She is tolerating her diet well. Her pain is controlled. - Physical Examination General: Present: No Apparent Distress HEENT: Present: Pupils equal Cardiac: Present: Reg Rate and Rhythm, Normal S1 and S2, No Murmur Lungs: Present: Normal Breath Sounds, No Wheeze, Rales, Rhonchi Neuro: Present: Alert and responsive Vascular: Present: Normal capillary refill, Pulse, normal Abdomen: Present: Soft, Non-tender Skin: Present: No rashes noted on visualized skin Musculoskeletal: Present: No Chest Wall Tenderness Results 12/30/18 08:35 12/30/18 08:35 Consult Discharge Plan - Plan Additional Instructions: No lifting greater than 10 pounds. No automobile driving. Patient may ambulate both inside and outside. Patient may use stairs as tolerated. Follow-up with Dr. Ordoñez on January 18 Referrals: NONE,PCP [Primary Care Provider] - Elmo Ordoñez MD [Partnered Physician] - 01/18/19 9:45 am Prescriptions: Aspirin Enteric Coated [Aspirin EC] 81 mg PO DAILY 30 Days #30 tablet. Atorvastatin [Lipitor] 40 mg PO HS 30 Days #30 tablet Carvedilol [Coreg] 12.5 mg PO BIDWM 30 Days #60 tablet Clopidogrel [Plavix] 75 mg PO DAILY 30 Days #30 tablet
[2018-12-31] MEDS: risperiDONE 1 MG TABLET PO SCH ×2 (16:56→21:07)
[2019-01-01] MEDS: *HR* Heparin 5,000 UNIT/ML VIAL SQ SCH (06:24)
[2019-01-01 07:11] VITALS: BP 147/98
[2019-01-01] MEDS: Aspirin Enteric Coated 81 MG Tablet PO SCH (07:49)
[2019-01-01] MEDS: risperiDONE 1 MG TABLET PO SCH (07:49)
[2019-01-01] MEDS: Nicotine 21 MG PATCH.TD24 TD SCH (07:50)
[2019-01-01] MEDS: *HR* Buprenorphine HCl 2 MG SUBLINGUAL TABLET SL SCH (07:50)
--- NOTE | 2019-01-01 08:11 | Event Note ---
Date of Encounter: 01/01/19 Time of Encounter: 08:08 I have seen and evaluated the patient at bedside. Today the patient is calm, not restless and not raising thought observed. Physical exam: Vitals: Reviewed General: Alert and oriented x4. No distress, hyper-active Cardiovascular: RRR, normal S1 & S2, no rubs, murmurs or gallops. Lungs: CTA b/l, no wheezes or crackles. Abdomen: Soft, non-tender, no rigidity. Extremities: Palpable pulses b/l lower extr Neurological: No focal neurological deficits Rest of the physical exam is non contributory Assessment and Plan 1. Acute manic attack (resolved) 2. Aortic occlusion s/p aortic thromboendarterectomy with patch angioplasty 3. Substance abuse 4. VTE prophylaxis 5. Tobacco abuse 6. Hypertension Plan: Patient discharged home. Patient educated about the importance of picking up her prescriptions. Patient showed understanding. risperidal 1mg/PO prescription sent to her pharmacy
[2019-01-01 08:31] LABS: BUN/Creatinine Ratio 24 (6-26); Blood Urea Nitrogen 12 mg/dL (6-20); Calcium 8.5 mg/dL (8.6-10.3); Carbon Dioxide 25 mEq/L (23-29); Chloride 105 mEq/L (98-107); Glucose 93 mg/dL (70-105); Magnesium 1.8 mg/dL (1.6-2.6); Osmolality,Calculated 289 (280-300); Phosphorous 3.6 mg/dL (2.7-4.5); Potassium 3.2 mEq/L (3.5-5.1); Sodium 140 mEq/L (136-145); eGFR For Non-African Americans > 60 (> 60)
--- NOTE | 2019-01-01 11:40 | Vascular/[facility] Progress Note ---
Date of Encounter: 01/01/19 Time of Encounter: 11:40 - Assessment and plan (1) Aortic occlusion Current Visit: Yes Status: Acute Doing well. She has palpable femoral pulses. She denies any pain in her lower extremities. The patient can be discharged from vascular standpoint when she is medically stable. (2) Delirium due to another medical condition, acute, hyperactive Current Visit: Yes Status: Acute - Subjective Interval history: Doing well. She denies any back pain or leg pain. She is tolerating her diet well. Her pain is controlled. - Physical Examination General: Present: No Apparent Distress Vascular: Present: Normal capillary refill, Pulse, normal Abdomen: Present: Soft, Non-tender Musculoskeletal: Present: No Chest Wall Tenderness Results 12/30/18 08:35 01/01/19 07:39 Lab Results, Last 24 hours 01/01/19 07:39 Sodium 140 Potassium 3.2 L Chloride 105 Carbon Dioxide 25 BUN 12 Creatinine 0.49 L Glucose 93 Calcium 8.5 L Magnesium 1.8 Consult Discharge Plan - Plan Instructions: Aspirin (By mouth), Risperidone (By mouth), Atorvastatin (By mouth), Carvedilol (By mouth), Clopidogrel (By mouth) Additional Instructions: No lifting greater than 10 pounds. No automobile driving. Patient may ambulate both inside and outside. Patient may use stairs as tolerated. Follow-up with Dr. Ordoñez on January 18 Referrals: Lei Pruett [Non-Partnered Physician] - (Requested new PCP and Follow up at residency clinic. Requested appointment online. Should Call with appointment time in 1-3 days. If no call by Wednesday please call this number to schedule follow up and find PCP) Elmo Ordoñez MD [Partnered Physician] - 01/18/19 9:45 am Prescriptions: Aspirin Enteric Coated [Aspirin EC] 81 mg PO DAILY 30 Days #30 tablet. Atorvastatin [Lipitor] 40 mg PO HS 30 Days #30 tablet Carvedilol [Coreg] 12.5 mg PO BIDWM 30 Days #60 tablet Clopidogrel [Plavix] 75 mg PO DAILY 30 Days #30 tablet risperiDONE [RisperDAL] 1 mg PO BID 30 Days #60 tablet
== END 2019-01-01 13:33 | disposition home or self-care (01) | DRG 169 ==
LOC: 3ANU 21:31 → EMEROOARM 21:31 → 3ANU 12-24 07:44 → SUATTDRO 12-24 18:41 → ICNU 12-27 08:59 → 2NNU 12-27 11:23 → ICNU 12-27 12:44 → 2NENU 12-30 12:36
PROVIDERS: ADMIT Internal Medicine; ATTEND Internal Medicine